=== PATIENT | female | born 1960 | race Caucasian/White ===

== ENCOUNTER 2022-08-05 18:46 | Inpatient (IN) | payer MEDICARE, OTHER ==
--- OUTSIDE RECORDS SUMMARY | 2022-08-05 18:50 | XMS REPORT | Continuity of Care Document ---
:1960 Author Organization [facility] t Address [address] [place] [address] Care Team Providers Name Role Phone Josh Valdivia Primary Care Physician Josh Valdivia Attending Clinician Cj GARLAND, Morgan L Attending Clinician ZOEY PERRIN Attending Clinician Unavailable Zoey Hill Attending Clinician Mikhail Millan MD Attending Clinician Marzena TUBBS, Cecilia Lange Attending Clinician Tootie Valdez MD Attending Clinician Doctor Unassigned, Carrizo Attending Clinician Unavailable Payers Payer Name Policy Type Policy Number Effective Date Expiration Date S ourjames MEDICARE PART A \\T\\ [id number] 2010 B 00:00:00 [facility] [id number] 2021 (MEDICARE 00:00:00 REPLACEMENT HMO) Problems Condition Condition Condition Status Onset Resolution Last Treating Co mments Source Name Details Category Date Date Treatment Clinician Date Cerebral Cerebral Problem Active 2015-102022-03-16 Memoria infarction infarction 11-16 04:17:03 l (disorder) (disorder) 00:00: Serge rmann Active 00 09/16/2016 Problem 03/16/2022 [facility] Localizati Localizat Problem Active 2015-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-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-related ion-relate 11-16 04:17:03 l symptomati d 00:00: Prieto alexandre epilepsy symptomati 00 (disorder) c epilepsy (disorder) Active 09/16/2016 Problem 03/16/2022 [facility] Sequelae Sequelae Problem Active 2015-102022-03-16 Memoria of of 11-16 04:17:03 l subarachno subarachno 00:00: He rmann id id 00 hemorrhage hemorrhage (disorder) (disorder) Active 09/16/2016 Problem 03/16/2022 [facility] No known No known Disease Unive rs active active ity of problems problems [facility] Depressive Depressiv Problem Active 2022-03-16 Memoria disorder e disorder 04:17:03 l (disorder) (disorder) Serge rmann Active Problem 03/16/2022 [facility] Fracture Fracture Problem Active 2022-03-16 Memoria of upper of upper 04:17:03 l limb limb [place] (disorder) (disorder) Active Problem 03/16/2022 [facility] Allergies, Adverse Reactions, Alerts Allergy Allergy Status Severity Reaction(s) Onset Inactive Treating Comm ents Source Name Type Date Date Clinician NO KNOWN Drug Active Univers ALLERGIE Class ity of S [facility] Social History Social Habit Start Date Stop Date Quantity Comments Source Exposure to Unable to assess Univers ity of SARS-CoV-2 [facility] (event) [place] Alcohol intake 2021-06-13 2021-06-13 Lifetime University of 00:00:00 00:00:00 non-drinker [facility] (finding) [place] Tobacco use and 2021-05-08 2021-05-08 Never used Universit y of exposure 00:00:00 00:00:00 [facility] Social History 2021-05-03 2021-05-03 [facility] dunia 13:27:13 13:27:13 Sex [birth year] Universit y of 00:00:00 00:00:00 [facility] Smoking Status Start Date Stop Date Source Current every day smoker 2021-05-08 00:00:00 Uni versity of [facility] Unknown if ever smoked [facility] Medications Ordered Filled Start Stop Current Ordering Indication Dosage Frequency Signature Comments Components Source Medication Medication Date Date Medication? 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 ity of 18:15: [address] LAMOTRIGINE 0 Yes Take by Uni vers ORAL 8-18 mouth. ity of 18:15: [address] LAMOTRIGINE Yes Take by Uni vers ORAL 8-18 mouth. ity of 13:15: [address] traMADoL 50 2020-0 Yes 4647 50mg Take 1 Univ ers mg tablet 7-13 tablet by ity o f 00:00: mouth [place] 00 every 4 Medical (four) Branch hours as needed for Pain (scale 7-10). Indication s: acute pain traMADoL 50 2020-0 Yes 4647 50mg Take 1 Univ ers mg tablet 7-13 tablet by ity o f 00:00: mouth [place] 00 every 4 Medical (four) Branch hours as needed for Pain (scale 7-10). Indication s: acute pain traMADoL 50 2020-0 Yes 4647 50mg Take 1 Univ ers mg tablet 7-13 tablet by ity o f 00:00: mouth [place] 00 every 4 Medical (four) Branch hours as needed for Pain (scale 7-10). Indication s: acute pain traMADoL 50 2020-0 Yes 4647 50mg Take 1 Univ ers mg tablet 7-13 tablet by ity o f 00:00: mouth [place] 00 every 4 Medical (four) Branch hours as needed for Pain (scale 7-10). Indication s: acute pain traMADoL 50 2020-0 Yes 4647 50mg Take 1 Univ ers mg tablet 7-13 tablet by ity o f 00:00: mouth [place] 00 every 4 Medical (four) Branch hours as needed for Pain (scale 7-10). Indication s: acute pain traMADoL 50 2020-0 Yes 4647 50mg Take 1 Univ ers mg tablet 7-13 tablet by ity o f 00:00: mouth [place] 00 every 4 Medical (four) Branch hours as needed for Pain (scale 7-10). Indication s: acute pain ondansetron 0 2020- No 4mg 4 mg, Slow Univers (ZOFRAN 05-01 IV Push, ity of (PF)) 17:15: 16:09 ONCE, 1 [place] injection 4 00 :00 dose, Tue Med ical mg 05/01/21 at Branch 1215, DARRIAN FENTanyl PF 2020- No 75ug 75 mcg, Un blair (SUBLIMAZE 05-01 Slow IV ity o f (PF)) 17:15: 16:09 Push, [place] injection 00 :00 ONCE, 1 Medical 75 mcg dose, Tue Branch 05/01/21 at 1215, STAT ondansetron 0 Yes [id number] 4mg Take 1 Univers 4 mg 7-06 tablet by ity of disintegrat 00:00: mouth [place] ing tablet 00 every 4 Medica l (four) Branch hours as needed for Nausea and Vomiting (N/V). ondansetron 2020-0 Yes [id number] 4mg Take 1 Univers 4 mg 7-06 tablet by ity of disintegrat 00:00: mouth [place] ing tablet 00 every 4 Medica l (four) Branch hours as needed for Nausea and Vomiting (N/V). ondansetron 2020-0 Yes [id number] 4mg Take 1 Univers 4 mg 7-06 tablet by ity of disintegrat 00:00: mouth [place] ing tablet 00 every 4 Medica l (four) Branch hours as needed for Nausea and Vomiting (N/V). ondansetron Yes [id number] 4mg Take 1 Univers 4 mg 7-06 tablet by ity of disintegrat 00:00: mouth [place] ing tablet 00 every 4 Medica l (four) Branch hours as needed for Nausea and Vomiting (N/V). ondansetron Yes [id number] 4mg Take 1 Univers 4 mg 7-06 tablet by ity of disintegrat 00:00: mouth [place] ing tablet 00 every 4 Medica l (four) Branch hours as needed for Nausea and Vomiting (N/V). ondansetron Yes [id number] 4mg Take 1 Univers 4 mg 7-06 tablet by ity of disintegrat 00:00: mouth [place] ing tablet 00 every 4 Medica l (four) Branch hours as needed for Nausea and Vomiting (N/V). ondansetron Yes [id number] 4mg Take 1 Univers 4 mg 7-06 tablet by ity of disintegrat 00:00: mouth [place] ing tablet 00 every 4 Medica l (four) Branch hours as needed for Nausea and Vomiting (N/V). ondansetron Yes [id number] 4mg Take 1 Univers 4 mg 7-06 tablet by ity of disintegrat 00:00: mouth [place] ing tablet 00 every 4 Medica l (four) Branch hours as needed for Nausea and Vomiting (N/V). ondansetron Yes [id number] 4mg Take 1 Univers 4 mg 7-06 tablet by ity of disintegrat 00:00: mouth [place] ing tablet 00 every 4 Medica l (four) Branch hours as needed for Nausea and Vomiting (N/V). HYDROcodone 2020- No 4647 1{tbl} Take 1 U nivers -acetaminop 7-06 07-14 tablet by it y of hen (NORCO) 00:00: 04:59 [place] 7.5-325 mg 00 :00 every 8 Medica l per tablet (eight) Branch hours as needed for Pain for up to 7 days. Indication s: acute pain HYDROcodone 2020-2020- No 4647 1{tbl} Take 1 U nivers -acetaminop 7-06 07-14 tablet by it y of hen (Thinkature) 00:00: 04:59 [place] 7.5-325 mg 00 :00 every 8 Medica l per tablet (eight) Branch hours as needed for Pain for up to 7 days. Indication s: acute pain HYDROcodone 2020-2020- No 4647 1{tbl} Take 1 U nivers -acetaminop 7-06 07-14 tablet by it y of hen (Thinkature) 00:00: 04:59 [place] 7.5-325 mg 00 :00 every 8 Medica l per tablet (eight) Branch hours as needed for Pain for up to 7 days. Indication s: acute pain HYDROcodone 2020-1- No 4647 1{tbl} Take 1 U nivers -acetaminop 7-06 07-14 tablet by it y of hen (Thinkature) 00:00: 04:59 [place] 7.5-325 mg 00 :00 every 8 Medica l per tablet (eight) Branch hours as needed for Pain for up to 7 days. Indication s: acute pain LAMOTRIGINE 2020-0 Yes Take by Uni vers ORAL 6-30 mouth. ity of 05:48: [address] LAMOTRIGINE 2020-0 Yes Take by Uni vers ORAL 6-30 mouth. ity of 05:48: [address] LAMOTRIGINE 2020-0 Yes Take by Uni vers ORAL 6-30 mouth. ity of 05:48: [address] LAMOTRIGINE 2020-0 Yes Take by Uni vers ORAL 6-30 mouth. ity of 05:48: [address] LAMOTRIGINE 2020-0 Yes Take by Uni vers ORAL 6-30 mouth. ity of 05:48: [address] LAMOTRIGINE 2020-0 Yes Take by Uni vers ORAL 6-30 mouth. ity of 05:48: [address] LAMOTRIGINE 2020-0 Yes Take by Uni vers ORAL 6-30 mouth. 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, Height, 51.364, kg, 09/29/20 13:24:00 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, Weight phenytoin 2020-1 No See Memoria 100 mg oral 1-16 Instructio l capsule, 23:28: ns, TAKE Tomasa nn extended 00 ONE release CAPSULE BY MOUTH EVERY MORNING AND 2 CAPSULES EVERY EVENING, # 270 unknown unit, 0 Refill(s), Pharmacy: [facility] [id number], 162.56, cm, 12/17/19 13:20:00 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, Height, 51.818, kg, 12/17/19 13:20:00 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, Weight phenytoin 2020-0 Yes 100 mg = 1 Me moria 100 mg oral 8-28 cap, PO, l capsule, 19:54: BID, # 60 Herm corey extended 00 cap, 1 release Refill(s), Pharmacy: [place] [address], 162.56, cm, 12/17/19 13:20:00 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, Height, 51.818, kg, 12/17/19 13:20:00 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, Weight Phenytoin 2020-0 Yes 30 mg = 1 Mem oria sodium 30 8-28 cap, PO, l MG Extended 19:54: BID, # 60 H ermann Release 00 cap, 3 Capsule Refill(s), [Dilantin] Pharmacy: [facility] [address], 162.56, cm, 12/17/19 13:20:00 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, Height, 51.818, kg, 12/17/19 13:20:00 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, Weight phenytoin 2020-0 Yes See Univers Extended 8-28 Instructio ity o f 100 mg 00:00: ns, TAKE [place] capsule 00 ONE Medical CAPSULE BY Branch MOUTH EVERY MORNING AND 2 CAPSULES EVERY EVENING, # 270 cap, 2 Refill(s), Pharmacy: [facility], 162.56, cm, 09/29/20 13:24:00 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, Height, 51.364, kg, 09/29/20 13:24:00 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, Weight phenytoin 2020-0 Yes See [place] [address] Instructio ity o f 100 mg 00:00: ns, TAKE [place] capsule 00 ONE Medical CAPSULE BY Branch MOUTH EVERY MORNING AND 2 CAPSULES EVERY EVENING, # 270 cap, 2 Refill(s), Pharmacy: [facility], 162.56, cm, 09/29/20 13:24:00 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, Height, 51.364, kg, 09/29/20 13:24:00 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, Weight phenytoin 2020-0 Yes See [place] [address] Instructio ity o f 100 mg 00:00: ns, TAKE [place] capsule 00 ONE Medical CAPSULE BY Branch MOUTH EVERY MORNING AND 2 CAPSULES EVERY EVENING, # 270 cap, 2 Refill(s), Pharmacy: [facility], 162.56, cm, 09/29/20 13:24:00 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, Height, 51.364, kg, 09/29/20 13:24:00 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, Weight phenytoin 2020-0 Yes See [place] [address] Instructio ity o f 100 mg 00:00: ns, TAKE [place] capsule 00 ONE Medical CAPSULE BY Branch MOUTH EVERY MORNING AND 2 CAPSULES EVERY EVENING, # 270 cap, 2 Refill(s), Pharmacy: [facility], 162.56, cm, 09/29/20 13:24:00 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, Height, 51.364, kg, 09/29/20 13:24:00 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, Weight phenytoin 2020-0 Yes See [place] [address] Instructio ity o f 100 mg 00:00: ns, TAKE [place] capsule 00 ONE Medical CAPSULE BY Branch MOUTH EVERY MORNING AND 2 CAPSULES EVERY EVENING, # 270 cap, 2 Refill(s), Pharmacy: [facility], 162.56, cm, 09/29/20 13:24:00 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, Height, 51.364, kg, 09/29/20 13:24:00 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, Weight phenytoin 2020-0 Yes See [place] [address] Instructio ity o f 100 mg 00:00: ns, TAKE [place] capsule 00 ONE Medical CAPSULE BY Branch MOUTH EVERY MORNING AND 2 CAPSULES EVERY EVENING, # 270 cap, 2 Refill(s), Pharmacy: [facility], 162.56, cm, 09/29/20 13:24:00 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, Weight lamotrigine 2020-0 Yes = 1 tab, Me moria 150 MG Oral 6-11 PO, BID, # l Tablet 23:50: 180 tab, 2 Tomasa nn 00 Refill(s), Pharmacy: [facility] [place], 162.56, cm, 12/17/19 13:20:00 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, Height, 51.818, kg, 12/17/19 13:20:00 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, Weight phenytoin 2020-0 No See Memoria 100 mg oral 5-07 Instructio l capsule, 18:19: ns, # 270 Herm corey extended 58 unknown release unit, Refill(s) 1, TAKE ONE CAPSULE BY MOUTH EVERY MORNING AND 2 CAPSULES EVERY EVENING, Pharmacy: [place] [address] lamotrigine 2019-0 Yes = 1 tab, Me moria 150 MG Oral 8-19 PO, BID, # l Tablet 19:24: 180 tab, [place] 56 Refill(s) 2, Pharmacy: [facility] [address] Vital Signs Vital Name Observation Time Observation Value Comments Source Systolic blood 2021-05-08 13:43:00 135 mm[Hg] Univer sity of [facility] Diastolic blood 2021-05-08 13:43:00 69 mm[Hg] Unive rsity of [facility] Heart rate 2021-05-08 13:43:00 73 /min Universi ty [facility] Body height 2021-05-08 13:43:00 162.6 cm [facility] Body weight 2021-05-08 13:43:00 58.968 kg [facility] BMI 2021-05-08 13:43:00 22.31 kg/m2 [facility] Systolic blood 2021-05-01 18:30:00 147 mm[Hg] Univer sity of pressure [facility] Diastolic blood 2021-05-01 18:30:00 65 mm[Hg] Unive rsity of pressure [facility] Heart rate 2021-05-01 18:30:00 76 /min [facility] Respiratory rate 2021-05-01 18:30:00 18 /min Univ ersity [facility] Oxygen saturation in 2021-05-01 18:30:00 97 /min University of Arterial blood by [employer] Pulse oximetry Branch Body temperature 2021-05-01 15:52:00 36.44 Carol Univ ers[facility] Body weight 2021-05-01 15:52:00 58.968 kg [facility]i [facility] BMI 2021-05-01 15:52:00 19.20 kg/m2 [facility] Systolic blood 2021-04-25 04:00:00 167 mm[Hg] Univer sity of pressure [facility] Diastolic blood 2021-04-25 04:00:00 71 mm[Hg] Unive rsity of pressure [facility] Heart rate 2021-04-25 04:00:00 80 /min Universi ty [facility] Respiratory rate 2021-04-25 04:00:00 20 /min Univ ersity [facility] Oxygen saturation in 2021-04-25 04:00:00 99 /min University of Arterial blood by [employer] Pulse oximetry Branch Body height 2021-04-25 03:36:00 175.3 cm [facility] Body weight 2021-04-25 03:36:00 58.968 kg [facility] BMI 2021-04-25 03:36:00 19.20 kg/m2 [facility] Body temperature 2021-04-25 03:34:[address] [facility] BMI Calculated 2022-03-13 20:24:00 Memori al [place] Systolic (mm Hg) 2022-03-13 20:24:00 Perez rial [place] Diastolic (mm Hg) 2022-03-13 20:24:00 Mem orial [place] Heart Rate 2022-03-13 20:24:00 [facility] [place] Respitory Rate 2022-03-13 20:24:00 Memori al [place] Height 2022-03-13 20:24:00 160.02 cm [facility] [place] Weight 2022-03-13 20:24:00 [facility] [place] Systolic (mm Hg) 2021-07-20 18:23:00 Perez rial [place] Diastolic (mm Hg) 2021-07-20 18:23:00 Mem orial [place] Heart Rate 2021-07-20 18:23:00 [facility] [place] Respitory Rate 2021-07-20 18:23:00 Memori al [place] Height 2021-07-20 18:23:00 160.02 cm [facility] [place] Weight 2021-07-20 18:23:00 [facility] [place] BMI Calculated 2021-07-20 18:23:00 Memori al [place] Systolic (mm Hg) 2021-04-26 19:31:00 Perez rial [place] Diastolic (mm Hg) 2021-04-26 19:31:00 Mem orial [place] Heart Rate 2021-04-26 19:31:00 [facility] [place] Respitory Rate 2021-04-26 19:31:00 Memori al [place] Weight 2021-04-26 19:31:00 [facility] [place] Systolic (mm Hg) 2020-09-29 19:13:00 Perez rial [place] Diastolic (mm Hg) 2020-09-29 19:13:00 Mem orial [place] Heart Rate 2020-09-29 19:13:00 [facility] [place] Respitory Rate 2020-09-29 19:13:00 Memori al Amb[place] Height 2020-09-29 19:13:00 162.56 cm [facility] [place] Weight 2020-09-29 19:13:00 [facility] [place] BMI Calculated 2020-09-29 19:13:00 Memori al [place] Systolic (mm Hg) 2019-12-17 19:20:00 Perez rial [place] Diastolic (mm Hg) 2019-12-17 19:20:00 Mem orial [place] Heart Rate 2019-12-17 19:20:00 [facility] [place] Respitory Rate 2019-12-17 19:20:00 Mem[facility] [place] Height 2019-12-17 19:20:00 162.56 cm [facility] [place] Weight 2019-12-17 19:20:00 [facility] [place] BMI Calculated 2019-12-17 19:20:00 Memori al [place] Systolic (mm Hg) 2019-10-22 15:25:00 Perez rial [place] Diastolic (mm Hg) 2019-10-22 15:25:00 Mem orial [place] Heart Rate 2019-10-22 15:25:00 [facility] [place] Respitory Rate 2019-10-22 15:25:00 Memori al [place] Height 2019-10-22 15:25:00 162.56 cm [facility] [place] Weight 2019-10-22 15:25:00 [facility] [place] BMI Calculated 2019-10-22 15:25:00 Memori al [place] Procedures Procedure Date / Time Performing Clinician Source Performed XR HUMERUS 2 VW RIGHT 2021-05-08 13:54:41 Zoey Perrin [facility] XR WRIST 3+ VW RIGHT 2021-05-08 13:18:23 Zoey Perrin [facility] US DUPLEX VENOUS ARM 2021-05-01 17:15:34 Mikhail Millan [facility] RIGHT - BY VASCULAR LAB [facility] NOTICE OF PRIVACY 2021-05-01 15:51:25 Doctor Unassigned, No [facility] PRACTICES Name [facility] [place] APPLY LONG ARM SPLINT 2021-04-25 05:32:00 [facility] [place] CLOSED RX HUM 2021-04-25 05:32:00 Tootie Valdez [facility] SUPRACONDYLR FX,MANIPU Medical B ranch EKG-12 LEAD 2021-04-25 05:28:12 Tootie Valdez [facility] CT HEAD WO CONTRAST 2021-04-25 04:57:36 Tootie Valdez [facility] XR FOREARM 2 VW RIGHT 2021-04-25 04:32:25 Tootie Valdez [facility] XR HUMERUS 2 VW RIGHT 2021-04-25 04:32:25 Tootie Valdez [facility] XR SHOULDER 2+ VW RIGHT 2021-04-25 04:32:25 [facility] URINE DRUG (IMMUNOASSAY) 2021-04-25 04:05:00 [facility] SCREEN URINALYSIS 2021-04-25 04:05:00 Tootie Valdez [facility] TROPONIN I 2021-04-25 03:48:00 Tootie Valdez [facility] COMP. METABOLIC PANEL 2021-04-25 03:48:00 Tootie Valdez [facility] ([id number]) [facility] CBC WITH DIFF 2021-04-25 03:48:00 Tootie Valdez [facility] AUTHORIZATION FOR 2019-12-20 06:01:00 Doctor Unassigned, No [facility] RELEASE OF PHI Name [facility] Branch Encounters Start End Encounter Admission Attending Care Care Encounter Source Date/Time Date/Time Type Type Clinicians Facility Department ID 2021-08-27 Emergency [facility] [id number] Univers 06:14:51 [facility] 2021-08-27 Emergency [facility] [id number] Univers 04:49:18 [facility] 2023-02-19 2023-02-19 Outpatient MHIE EMMY [id number] Memoria 10:15:00 10:15:00 16 l [place] 2022-05-10 2022-05-10 Outpatient DMG COBY [id number] Devoted 06:08:00 06:08:00 0715 Medica l Group 2022-03-13 2022-03-14 Outpatient nullFlavo MNA [id number] Memoria 20:15:00 04:59:59 r Neurology 15 l Hasmukh Ambrose 2022-03-13 2022-03-13 Outpatient SOFY Valdivia [id number] 15:15:00 23:59:59 Josh Alicia Bradford 2022-03-13 2022-03-13 Outpatient MHIE MHIE [id number] Memoria 15:15:00 15:15:00 15 luis daniel Boggs 2021-10-23 2021-10-23 Ambulatory nullFlavo MNA [id number] Memoria 19:15:00 19:15:00 Pre-Reg r Neurology 14 l [place] Ambrose 2021-10-23 2021-10-23 Outpatient MHIE MHIE [id number] Memoria 13:15:00 13:15:00 14 luis daniel Ambrose 2021-10-23 2021-10-23 Outpatient SOFY Valdivia [id number] 13:15:00 13:15:00 Josh 14 Sanchez 2021-09-06 2021-09-06 [id number] [facility]oted 08:00:00 08:00:00 1111 Medica l Group 2021-07-30 2021-07-30 Telephone [facility] [id number] Univers 00:00:00 00:00:00 [facility] [id number] it y of Surgical [id number] Dusty as Specialti [id number] Ca dical 198 [facility] 2021-07-27 2021-07-27 Outpatient Aleida PERRIN [facility] [id number] Univers 11:15:00 11:15:00 ZOEY [id number] [facility] 2021-07-27 2021-07-27 Outpatient Aleida PERRIN [facility] [id number] Univers 11:15:00 11:15:00 [facility] 2021-07-20 2021-07-21 Outpatient nullFlavo MNA [id number] Memoria 18:15:00 04:59:59 r Neurology 13 l Hasmukh Boggs 2021-07-20 2021-07-20 Outpatient Krell, MHMISCHER MHMISCHER [id number] 13:15:00 23:59:59 Josh 13 Sanchez 2021-07-20 2021-07-20 Outpatient MHIE MHIE [id number] Memoria 13:15:00 13:15:00 13 l Ambrose 2021-07-16 2021-07-16 Outpatient Aleida AYDIN [facility] [id number] Univers 13:30:00 13:30:00 ZOEY [id number] [facility] 2021-07-16 2021-07-16 Outpatient Aleida AYDIN [facility] [id number] Univers 13:30:00 13:30:00 [facility]Y [facility] 2021-07-04 2021-07-06 Outside nullFlavo MNA [id number] Memoria 13:42:49 04:59:59 Medical r Neurology 03 l Records Hasmukh Ambrose 2021-07-04 2021-07-05 Outpatient MHMISCHER MHMISCHER [id number] 08:42:49 23:59:59 03 2021-06-14 2021-06-16 Outside nullFlavo MNA [id number] Memoria 14:59:41 04:59:59 Medical r Neurology 02 l Records Hasmukh Boggs 2021-06-14 2021-06-15 Outpatient MHMISCHER MHMISCHER [id number] 09:59:41 23:59:59 02 2021-06-14 2021-06-14 Telephone [facility] [id number] Univers 00:00:00 00:00:00 [facility]ey [facility] [id number] it y of [place]erm[place] [id number] Dusty as Pankaj?Blea [id number] Ca son huerta 198 [facility] 2021-06-14 2021-06-14 Telephone [facility] [id number] Univers 00:00:00 00:00:00 [facility] [id number] it y of [place] [id number] Dusty as Pankaj?Blea [id number] Ca son huerta 198 [facility] 2021-06-13 2021-06-13 Outpatient Aleida PERRIN [facility] [id number] Univers 13:45:00 13:45:00 ZOEY [id number] [facility] 2021-06-13 2021-06-13 Outpatient Aleida AYDIN [facility] [id number] Univers 13:45:00 13:45:00 [facility]Y [facility] 2021-06-12 2021-06-12 Outpatient Aleida AYDIN [facility] [id number] Univers 13:00:00 13:00:[id number] [place] [address] 2021-06-12 2021-06-12 Outpatient Aleida AYDIN [facility] [id number] Univers 13:00:00 13:00:00 [facility] 2021-06-11 2021-06-11 [facility] [id number] Univers 13:45:00 13:45:00 [facility] [id number] [facility] 2021-06-11 2021-06-11 [facility] [id number] Univers 13:45:00 [facility]:45:[facility]-05 2021-06-07 Outside nullFlavo MNA [id number] Memoria 14:36:05 04:59:59 Medical r Neurology 01 l Records Hasmukh Boggs 2021-06-05 2021-06-06 Outpatient MHMISCHER MHMISCHER [id number] 09:36:05 23:59:59 2021-05-24 2021-05-24 Ambulatory nullFlavo MNA [id number] Memoria 18:15:00 18:15:00 Pre-Reg r Neurology 12 l Hasmukh Boggs 2021-05-24 2021-05-24 Outpatient MHIE MHIE [id number] Memoria 13:15:00 13:15:00 12 l Ambrose 2021-05-24 2021-05-24 Outpatient SOFY Valdivia MHMISCHER [id number] 13:15:00 13:15:00 Josh Bradford 2021-05-08 2021-05-08 [facility] 1.2.840.114 [id number] Univers 08:45:00 23:59:00 Encounter [facility] 350.1.13.10 ity of Surgical 4.2.7.2.686 Dusty as Specialti [id number] Ca dical es 809 [facility] 2021-05-08 2021-05-08 Office [facility] 1.2.840.114 [id number] Univers 09:00:51 09:15:51 Visit [facility] 350.1.13.10 it y of Surgical 4.2.7.2.686 Dusty as Specialti [id number] Ca dical es 198 [facility] 2021-05-08 2021-05-08 [facility] [id number] Univers 08:45:00 08:45:00 [facility] [id number] [facility] 2021-05-08 2021-05-08 Outpatient R [facility] [id number] Univers 08:45:00 08:45:00 [facility] 2021-05-08 2021-05-08 [facility] 1.2.840.114 [id number] Univers 08:18:22 08:44:00 Encounter Zoey [facility] 350.1.13.10 ity of Surgical 4.2.7.2.686 Dusty as Specialti [id number] Ca dical es 809 [facility] 2021-05-08 2021-05-08 Telephone [facility] [id number] [id number] Univers 00:00[facility]00 [facility]13.10 [facility] Surgical 4.2.7.2.686 Dusty as Specialti [id number] Ca dical es 198 [facility] 2021-05-01 2021-05-01 Emergency [facility] [id number] Univers 10:52:00 13:39:00 Mikhail Jermyn 350.1.13.10 i [place].2.[place] [id number] [facility] 084 Branch 2021-04-26 2021-04-27 Outpatient nullFlavo MNA [id number] Memoria 18:45:00 04:59:59 r Neurology 11 luis daniel Boggs 2021-04-26 2021-04-26 Outpatient LINDEN ValdiviaSCHER MHMISCHER [id number] 13:45:00 23:59:59 Josh 11 Sanchez 2021-04-26 2021-04-26 Outpatient MHIE MHIE [id number] Memoria 13:45:00 13:45:00 11 luis daniel Boggs 2021-04-24 2021-04-25 Emergency Cecilia Ivan [facility] 1.2.[id number] [facility] 22:31:00 00:54:00 CourtneyTootie Demetrius Jermyn 350.1.13.10 [facility] 4.2.7.2.686 [facility] [id number] [facility] 084 [place] 2021-03-30 2021-03-30 Ambulatory nullFlavo MNA [id number] Memoria 18:15:00 18:15:00 Pre-Reg r Neurology 10 l Glen[place]dar[place] Sebastianann 2021-03-30 2021-03-30 Outpatient MHIE MHIE [id number] Memoria 13:15:00 13:15:00 10 luis daniel Boggs 2021-03-30 2021-03-30 Outpatient LINDEN ValdiviaSCHER MHMISCHER [id number] 13:15:00 13:15:00 Josh 10 Sanchez 2020-09-29 2020-09-30 Outpatient nullFlavo MNA [id number] Memoria 19:15:00 05:59:59 r Neurology 09 luis daniel [place] Ambrose 2020-09-29 2020-09-29 Outpatient LINDEN ValdiviaSCHER MHMISCHER [id number] 13:15:00 23:59:59 Josh 09 Sanchez 2020-09-29 2020-09-29 Outpatient MHIE MHIE [id number] Memoria 13:15:00 13:15:00 09 luis daniel Ambrose 2020-07-21 2020-07-21 Ambulatory nullFlavo MNA [id number] Memoria 14:30:00 14:30:00 Pre-Reg r Neurology 04 l [place] Ambrose 2020-07-21 2020-07-21 Ambulatory nullFlavo MNA [id number] Memoria 14:30:00 14:30:00 Pre-Reg r Neurology 07 l Hasmukh Bay[place] 2020-07-21 2020-07-21 Outpatient MHIE MHIE [id number] Memoria 09:30:00 09:30:00 04 luis daniel Bay[place] 2020-07-21 2020-07-21 Outpatient MHIE MHIE [id number] Memoria 09:30:00 09:30:00 07 luis daniel Boggs 2020-07-21 2020-07-21 Outpatient Skip, MHMISCHER MHMISCHER [id number] 09:30:00 09:30:00 Josh 04 Sanchez 2020-07-21 2020-07-21 Outpatient Skip, MHMISCHER MHMISCHER [id number] 09:30:00 09:30:00 Josh 07 [facility] 2020-06-23 2020-06-24 Outpatient nullFlavo MNA [id number] Memoria 19:30:00 04:59:59 r Neurology 08 l Hasmukh [place] 2020-06-23 2020-06-23 Outpatient Skip, MHMISCHER MHMISCHER [id number] 14:30:00 23:59:59 Josh 08 [facility] 2020-06-23 2020-06-23 Outpatient MHIE MHIE [id number] Memoria 14:30:00 14:30:00 08 [facility] 2019-12-20 2019-12-20 Orders Doctor RADHA 1.2.840.114 [id number] Univers 00:00:00 00:00:00 Only Unassigned, LYNDON 350.1.13.10 ity of [place] [facility] 4.2.7.2.686 Dusty as [id number] [address] 2019-12-17 2019-12-18 Outpatient nullFlavo MNA [id number] Memoria 19:30:00 05:59:59 r Neurology 06 l Hasmukh Ambrose 2019-12-17 2019-12-17 Outpatient Skip, MHMISCHER MHMISCHER [id number] 13:30:00 23:59:59 Josh 06 [facility] 2019-12-17 2019-12-17 Outpatient MHIE MHIE [id number] Memoria 13:30:00 13:30:00 06 luis daniel Ambrose 2019-12-08 2019-12-08 Ambulatory nullFlavo MNA [id number] Memoria 22:00:00 22:00:00 Pre-Reg r Neurology 05 l Hasmukh Ambrose 2019-12-08 2019-12-08 Outpatient MHIE MHIE [id number] Memoria 16:00:00 16:00:00 05 luis daniel SebastianBayamon 2019-12-08 2019-12-08 Outpatient Skip MHMISCHER MHMISCHER [id number] 16:00:00 16:00:00 Josh 05 Sanchez 2019-10-22 2019-10-23 Outpatient nullFlavo MNA [id number] Memoria 15:30:00 05:59:59 r Neurology 03 luis daniel Noe Ambrose 2019-10-22 2019-10-22 Outpatient Skip MHMISCHER MHMISCHER [id number] 09:30:00 23:59:59 Josh 03 Sanchez 2019-10-22 2019-10-22 Outpatient MHIE MHIE [id number] Memoria 09:30:00 09:30:00 03 luis daniel Ambrose 2019-06-29 2019-06-29 Ambulatory nullFlavo MNA [id number] Memoria 18:30:00 18:30:00 Pre-Reg r Neurology 02 l [place] Ambrose 2019-06-29 2019-06-29 Outpatient MHIE MHIE [id number] Memoria 13:30:00 13:30:00 02 luis daniel Ambrose 2019-06-29 2019-06-29 Outpatient GERRY ValdiviaMISCHER MHMISCHER [id number] 13:30:00 13:30:00 Josh Willow Bradford 2018-12-29 2018-12-29 Outpatient MHIE MHIE [id number] Memoria 13:30:00 13:30:00 01 luis daniel Boggs 2018-10-31 2018-11-02 Outside nullFlavo MNA [id number] Memoria 17:57:00 05:59:59 Medical r Neurology 00 l Saeed [place] Ambrose 2018-10-31 2018-11-01 Outpatient MHMISCHER MHMISCHER [id number] 11:57:00 23:59:59 00 2018-06-30 2018-06-30 Outpatient MHIE MHIE [id number] Memoria 13:00:00 13:00:00 00 luis daniel Boggs Results Test Test Test Results Result Source Description Time Comments Comments XR WRIST 3+ VW 2021-04- Right wrist there was an University of RIGHT 13 [place] [facility] 14:27:01 well-healed but no acute Branch fracture x-ray was taken in Sugar tong splint. There are degenerative changes in the wrist joint there is no volar or dorsal angulation of the well-healed fracture XR HUMERUS 2 VW 2021-04- Midshaft transverse University of RIGHT 13 fracture in acceptable [facility] 14:26:24 alignment not much Branch callus formation Ortho Fracture 2021-03- Tootie Valdez MD ? ? University 30 04/25/2021 12:32 [facility]Ortho [facility] 05:32:00 FracturePerformed by: Rekha vaTootie Guardado MDAuthorized by: Tootie Valdez MD Consent: ?Consent obtained: ?Emergent situation ?Consent given by: ?Healthcare agent ?Risks discussed: ?Nerve damage, pain and vascular damage ?Alternatives discussed: ?No treatmentInjury: ?Injury location: ?Upper arm ?Upper arm injury location: ?R upper arm ?Upper arm fracture type: supracondylar humeral ?Pre-procedure assessment: ?Neurological function: normal ? ?Distal perfusion: normal ? ?Range of motion: reduced ?Anesthesia (see MAR for exact dosages): ?Anesthesia method: ?NoneProcedure details: ?Manipulation performed: yes ? ?Skin traction used: no ? ?Skeletal traction used: no ? ?Pin inserted: no ? ?Reduction successful: no ? ?Immobilization: ?Splint ?Splint type: ?Double sugar tong ?Supplies used: ?Chzcz-BfcmzTbgz-qlpaxcj re details: ?Neurological function: normal ? ?Distal perfusion: normal ? ?Range of motion: improved ? ?Patient tolerance of procedure: ?Tolerated well, no immediate complications CT HEAD WO 2021-03- Large area of [facility] CONTRAST 30 encephalomalacia in the [facility] 05:09:09 left parietal Branch andoccipital lobe.2. Smaller area of subacute encephalomalacia in the left frontal lobe.3. Previous bifrontal craniotomy.4. No acute intracranial hemorrhage or edema. RL: 5611 AFC: [id number] END OF REPORT Ordering Physician: TOOTIE VALDEZ Clinical Indication: Mental status change, unknown cause Additional Clinical Information: Technical Quality: Good Comparison: None Technique: CT scan of the head is obtained without contrast. CT Scan wasperformed using ALARA principles. ? 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 There is also an area of low attenuation the left frontallobe atelectasis probably subacute to old. There is no acute hemorrhage oredema. There is mild expected dilatation of left lateral ventricle. The bone windows shows previous bifrontal craniotomy. Paranasal sinuses areclear. [facility], Radiant Results Inft User - 04/25/2021 12:10 AM CDT Ordering Physician: TOOTIE WISEMAClinical Indication: Mental status change, unknown cause Additional Clinical Information:Technical Quality: GoodComparison: NoneTechnique: CT scan of the head is obtained without contrast. CT Scan wasperformed using ALARA principles. 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 There is also an area of low attenuation the left frontallobe atelectasis probably subacute to old. There is no acute hemorrhage oredema. There is mild expected dilatation of left lateral ventricle.The bone windows shows previous bifrontal craniotomy. Paranasal sinuses areclear.IMPRESSIONLarge area of encephalomalacia in the left parietal andoccipital lobe.2. Smaller area of subacute encephalomalacia in the left frontal lobe.3. Previous bifrontal craniotomy.4. No acute intracranial hemorrhage or edema.RL: 5611AFC: [id number] OF REPORT ALYSIS 2021-04-25 05:01:35 Test Item Value Reference Range Interpretation Comme nts APPEARANCE (test code = Clear Clear 0902101501) COLOR (test code = 0651800013) Yellow Yellow PH (test code = 6732414628) 4.8-8.0 SP GRAVITY (test code = 1.003-1.030 0532386337) GLU U QUAL (test code = Normal Normal 9777038327) BLOOD (test code = 2633841023) 1+ Negative A KETONES (test code = 7870069532) Negative Negative PROTEIN (test code = 2887-8) Negative Negative UROBILIN (test code = Normal Normal 7924581320) BILIRUBIN (test code = Negative Negative 6190075010) NITRITE (test code = 1746961444) Negative Negative LEUK ABELARDO (test code = Negative Negative 8138614951) RBC/HPF (test code = 6613979641) See_Comment [Automated message] The system which ge nerated this result transmit dewey reference range: 0 - 3 HP F. The reference range was not used to interpret th is result as normal/abnormal . WBC/HPF (test code = 8441739377) See_Comment [Automated message] The system which ge nerated this result transmit dewey reference range: 0 - 5 HP F. The reference range was not used to interpret th is result as normal/abnormal . BACTERIA (test code = Few Negative A 5061073734) MUCOUS (test code = 5360544085) Slight Negative LPF A SQ EPITH (test code = <1 HPF 6821739974) TRANS EPI (test code = <1 See_Comment [Aut omated message] The 9931897764) system which ge nerated this result transmit dewey reference range: <=1 HPF. The reference range was not u sed to interpret this result as normal/abnormal . Lab Interpretation (test code = Abnormal 07727-6) [facility] [id number] 04:56:34 Test Item Value Reference Range Interpretation Comments AMPHET (test code = Negative Negative 4212118821) GARCIA U (test code = Negative Negative 7145469716) BENZO U (test code = Presumptive Positive Negative A 1046684606) Cocaine Metabolite (test Negative Negative code = 8147384054) METHADONE (test code = Negative Negative 9457503557) OPIATES (test code = Negative Negative 7268411131) PCP (test code = Negative Negative 0660516155) THC (test code = Negative Negative 0543280618) TENNILLE (test code = TENNILLE) Urine Drug Cutoff Ranges Cocaine: ? 150 ng/mLBenzodiazepines: ? ? 200 ng/mLMethadone: ? 300 ng/mLAmphetamine: ? 1,000 ng/mLOpiates: ? 300 ng/mLCannabinoids: ?50 ng/mLPhencyclidine: ? ? ? 25 ng/mLBarbiturates: ?200 ng/mL The results are to be used only for medical (i.e., treatment) purposes. Unconfirmed screening results must not be used for non-medical purposes (e.g., employment testing, legal testing). Lab Interpretation (test Abnormal code = 69865-3) [facility] FOREARM 2 VW [id number] 04:48:54 Sclerotic distal radius is probably sequela of an old fracture.No acute fracture or subluxation. RL:5611 AFC: 67429 END OF REPORT Ordering Physician: TOOTIE VALDEZ Clinical Indication: Right Forearm pain S/P Fall Additional Clinical Information: Technical Quality: Good Comparison: None Technique: 2 view right forearm Findings: There is osteopenia. There is sclerosis of distal radius isprobably an old fracture. There is no acute fracture. [facility], Radiant Results Inft User - 04/24/2021 11:50 PM CDTFormatting of this note might be different fromthe original.Ordering Physician: TOOTIE SANDOVALlinical Indication: Right Forearm pain S/P Fall Additional Clinical Information:Technical Quality: GoodComparison: NoneTechnique: 2 view right forearmFindings: There is osteopenia. There is sclerosis of distal radius isprobably an old fracture. There isno acute fracture.IMPRESSIONSclerotic distal radius is probably sequela of an old fracture.No acute fracture or subluxation.RL: 5611AFC: [id number] OF REPORT [facility] CenterXR SHOULDER 2+ VW [id number] 04:44:291. Oblique fracture of the mid humeral diaphysis with mild valgusangulation.2. No acute fracture or dislocation of the right shoulder. RL: 5611 AFC: 28916 END OF REPORT Ordering Physician: TOOTIE VALDEZ Clinical Indication: Shoulder pain S/P Fall Additional Clinical Information: Technical Quality: Good Comparison: None Technique: 4 view right s houlder and two-view right humerus Findings: There is osteopenia. There is an oblique fracture of the midhumeral shaft. There is rotator cuff atrophy but no fracture or dislocationin the glenohumeral joint. There are multiple small subchondral cyst. In the humerus, the fracture of the mid diaphysis demonstrates a milddegree of or valgus angulation. [facility], Radiant Results Inft User - 04/24/2021 11:45 PM CDT Ordering Physician: TOOTIE SANDOVALlinical Indication: Shoulder pain S/P Fall Additional Clinical Information:Technical Quality: GoodComparison: NoneTechnique: 4 view right shoulder and two-view right humerusFindings: There is osteopenia. There is an oblique fracture of the midhumeral shaft. There is rotator cuff atrophy but no fracture or dislocationin the glenohumeral joint. There are multiple small subchondral cyst.In the humerus, the fracture of the mid diaphysis demonstrates a milddegree of or valgus angulation.IMPRESSION1. Oblique fracture of the mid humeral diaphysis with mild valgusangulation.2. No acute fracture or dislocation of the right shoulder.RL: 5611AFC: [id number] OF REPORT [facility] CenterXR HUMERUS 2 VW [id number] 04:44:291. Oblique fracture of the mid humeral diaphysis with mild valgusangulation.2. No acute fracture or dislocation of the right shoulder. RL: 5611 AFC: 73631 END OF REPORT Ordering Physician: TOOTIE VALDEZ Clinical Indication: Shoulder pain S/P Fall Additional Clinical Information: Technical Quality: Good Comparison: None Technique: 4 view right s houlder and two-view right humerus Findings: There is osteopenia. There is an oblique fracture of the midhumeral shaft. There is rotator cuff atrophy but no fracture or dislocationin the glenohumeral joint. There are multiple small subchondral cyst. In the humerus, the fracture of the mid diaphysis demonstrates a milddegree of or valgus angulation. [facility], Radiant Results Inft User - 04/24/2021 11:45 PM CDT Ordering Physician: TOOTIE WATERSRIMAClinical Indication: Shoulder pain S/P Fall Additional Clinical Information:Technical Quality: GoodComparison: NoneTechnique: 4 view right shoulder and two-view right humerusFindings: There is osteopenia. There is an oblique fracture of the midhumeral shaft. There is rotator cuff atrophy but no fracture or dislocationin the glenohumeral joint. There are multiple small subchondral cyst.In the humerus, the fracture of the mid diaphysis demonstrates a milddegree of or valgus angulation.IMPRESSION1. Oblique fracture of the mid humeral diaphysis with mild valgusangulation.2. No acute fracture or dislocation of the right shoulder.RL: 5611AFC: 44595MKK OF REPORT [facility] HospitalKATY [id number] 04:18:37 Test Item Value Reference Interpretation Comments Range TROPONIN I (test 0.003 ng/mL See_Comment [Automated code = 2413567249) message] The system which generated this result transmitted reference range : <=0.034. The reference range was not used to interpret this result as normal/abnormal . TENNILLE (test code = Reference (Normal) TENNILLE) Range (defined by the 99th percentile reference limit): <= 0.034 ng/mL Note: Cardiac troponin begins to rise 3-4 hours after the onset of ischemia. Repeat in 4-6 hours if the sample was drawn within 3-4 hours of the onset of the symptom and found normal. Diagnosis of myocardial injury is made with acute changes in cTn concentrations with at least one serial sample above the 99th percentile upper reference limit (URL), taken together with the patient's clinical presentation. Biotin has been reported to cause a negative bias, interpret results relative to patient's use of biotin. Lab Interpretation Normal (test code = 05605-0) [facility]. METABOLIC PANEL (60060)2021-04-25 04:06:39 Test Item Value Reference Range Interpretation Comments NA (test code = 134 mmol/L 135-145 L 0359666164) K (test code = 3.9 mmol/L 3.5-5.0 8200668348) CL (test code = 101 mmol/L 98-108 6872704519) CO2 TOTAL (test code = 28 mmol/L 23-31 5872258918) AGAP (test code = 2-16 3764057758) BUN (test code = 13 mg/dL 7-23 8990927737) GLUCOSE (test code = 132 mg/dL 70-110 H 2997935741) CREATININE (test code = 0.66 mg/dL 0.50-1.04 1044662354) TOTAL BILI (test code = 0.6 mg/dL 0.1-1.2 4153279236) CALCIUM (test code = 9.0 mg/dL 8.6-10.6 2037554642) T PROTEIN (test code = 7.2 g/dL 6.3-8.2 0570574192) ALBUMIN (test code = 4.1 g/dL 3.5-5.0 5429450269) ALK PHOS (test code = 83 U/L 34-122 0593346517) ALTv (test code = 14 U/L 5-35 2-6) AST(SGOT) (test code = 26 U/L 13-40 4989766426) eGFR (test code = mL/min/1.73m2 3671195907) TENNILLE (test code = TENNILLE) Association of Glomerular Filtration Rate (GFR) and Staging of Kidney Disease* + --+ --+ ------+| GFR (mL/min/1.73 m2) ?| With Kidney Damage ?| ?Without Kidney Damage+ --------+ --------+ +| ?>90 ?| ?Stage one ?| ? Normal ?+ ---+ ---+ -------+| ?60-89 ?| ?Stage two ?| ? Decreased GFR ? + --+ --+ ------+| ?30-59 ?| ?Stage three ?| ? Stage three ? + --+ --+ ------+| ?15-29 ?| ?Stage four ? | ? Stage four ?+ ---+ ---+ -------+| ?<15 (or dialysis) ? ?| ?Stage five ? | ? Stage five ?+ ---+ ---+ -------+ *Each stage assumes the associated GFR level has been in effect for at least three months. ?Stages 1 to 5, with or without kidney disease, indicate chronic kidney disease. Notes: Determination of stages one and two (with eGFR >59mL/min/1.73 m2) requires estimation of kidney damage for at least three months as defined by structural or functional abnormalities of the kidney, manifested by either:Pathological abnormalities or Markers of kidney damage (including abnormalities in the composition of the blood or urine or abnormalities in imaging tests). Lab Interpretation Abnormal (test code = 06651-5) [facility] WITH [id number] 03:58:16 Test Item Value Reference Range Interpretation Comments WBC (test code = See_Comment [Automated 7590-2) message] The sy stem which generated this result transmitted reference range : 4.30 - 11.10 10*3/?L. The reference range was not used to interpret this result as normal/abnormal . RBC (test code = See_Comment [Automated 789-8) message] The sy stem which generated this result transmitted reference range : 3.93 - 5.25 10*6/?L. The reference range was not used to interpret this result as normal/abnormal . HGB (test code = 13.2 g/dL 11.6-15.0 718-7) HCT (test code = 39.7 % 35.7-45.2 4544-3) MCV (test code = 94.3 fL 80.6-95.5 787-2) MCH (test code = 31.4 pg 25.9-32.8 785-6) MCHC (test code = 33.2 g/dL 31.6-35.1 786-4) RDW-SD (test code = 48.3 fL 39.0-49.9 53685-5) RDW-CV (test code = 14.0 % 12.0-15.5 788-0) PLT (test code = See_Comment [Automated 777-3) message] The sy stem which generated this result transmitted reference range : 166 - 358 10*3/ ?L. The reference r mike was not used to interpret this result as normal/abnormal . MPV (test code = 8.8 fL 9.5-12.9 L 19342-7) NRBC/100 WBC (test See_Comment [Automat ed code = 6555795518) message] The system which generated this result transmitted reference range : 0.0 - 10.0 /100 WBCs. The refer ence range was not u sed to interpret th is result as normal/abnormal . NRBC x10^3 (test code <0.01 See_Comment [Auto mated = 8370773771) message] The s ystem which generated this result transmitted reference range : 10*3/?L. The reference range was not used to interpret this result as normal/abnormal . GRAN MAT (NEUT) % 61.2 % (test code = 770-8) IMM GRAN % (test code 0.40 % = 9814960902) LYMPH % (test code = 26.2 % 736-9) MONO % (test code = 10.2 % 5905-5) EOS % (test code = 1.0 % 713-8) BASO % (test code = 1.0 % 706-2) GRAN MAT x10^3(ANC) 4.07 10*3/uL 1.88-7.09 (test code = 1962660333) IMM GRAN x10^3 (test 0.03 10*3/uL 0.00-0.06 code = 3739047525) LYMPH x10^3 (test code 1.75 10*3/uL 1.32-3.29 = 731-0) MONO x10^3 (test code 0.68 10*3/uL 0.33-0.92 = 742-7) EOS x10^3 (test code = 0.07 10*3/uL 0.03-0.39 711-2) BASO x10^3 (test code 0.07 10*3/uL 0.01-0.07 = 704-7) Lab Interpretation Abnormal (test code = 68641-9) [facility] [id number] 08:47:00 Test Item Value Reference Range Interpretation Comments Glucose Lvl (test code = Glucose Lvl) 65 65-99 [facility]2020-12-03 08:47:00 Test Item Value Reference Range Interpretation Comments BUN (test code = BUN) 8 7-25 [facility]2020-12-03 08:47:00 Test Item Value Reference Range Interpretation Comments Creatinine Lvl (test code = Creatinine 0.63 0.50-0.99 Lvl) [facility]2020-12-03 08:47:00 Test Item Value Reference Range Interpretation Comments eGFR NON-AFR. IRAQI (test code = 97 eGFR NON-AFR. IRAQI) [place] [id number] 08:47:00 Test Item Value Reference Range Interpretation Comments eGFR (test code = eGFR 112 ) [facility] [id number] 08:47:00 Test Item Value Reference Range Interpretation Comments B/C Ratio (test code = B/C NOT APPLICABLE 22 Ratio) [facility] [id number] 08:47:00 Test Item Value Reference Range Interpretation Comments Sodium Lvl (test code = Sodium Lvl) 138 135-146 [facility] [id number] 08:47:00 Test Item Value Reference Range Interpretation Comments Potassium Lvl (test code = Potassium 4.2 3.5-5.3 Lvl) [facility] [id number] 08:47:00 Test Item Value Reference Range Interpretation Comments Chloride Lvl (test code = Chloride Lvl) 102 98-110 [facility] [id number] 08:47:00 Test Item Value Reference Range Interpretation Comments CO2 (test code = CO2) 25 20-32 [facility] [id number] 08:47:00 Test Item Value Reference Range Interpretation Comments Calcium Lvl (test code = Calcium Lvl) 9.3 8.6-10.4 [facility] [id number] 08:47:00 Test Item Value Reference Range Interpretation Comments Total Protein (test code = Total 7.8 6.1-8.1 Protein) [facility] [id number] 08:47:00 Test Item Value Reference Range Interpretation Comments Albumin Lvl (test code = Albumin Lvl) 4.6 3.6-5.1 [facility] [id number] 08:47:00 Test Item Value Reference Range Interpretation Comments Globulin (test code = Globulin) 3.2 1.9-3.7 [facility] [id number] 08:47:00 Test Item Value Reference Range Interpretation Comments A/G Ratio (test code = A/G Ratio) 1.4 1.0-2.5 [facility] [id number] 08:47:00 Test Item Value Reference Range Interpretation Comments Bili Total (test code = Bili Total) 0.4 0.2-1.2 [place] [id number] 08:47:00 Test Item Value Reference Range Interpretation Comments Alk Phos (test code = Alk Phos) 118 37-153 [place] [id number] 08:47:00 Test Item Value Reference Range Interpretation Comments ASPARTATE TRANSAMINASE (test code = 20 10-35 ASPARTATE TRANSAMINASE) [place] [id number] 08:47:00 Test Item Value Reference Range Interpretation Comments ALANINE AMINOTRANSFERASE (test code = 9 6-29 ALANINE AMINOTRANSFERASE) [place] [id number] 08:47:00 Test Item Value Reference Range Interpretation Comments WBC X 10x3 (test code = WBC X 10x3) 7.9 3.8-10.8 [place] [address]-12-03 08:47:00 Test Item Value Reference Range Interpretation Comments RBC X 10x6 (test code = RBC X 10x6) 4.84 3.80-5.10 [place] [address]-12-03 08:47:00 Test Item Value Reference Range Interpretation Comments Hgb (test code = Hgb) 15.1 11.7-15.5 [place] [address]-12-03 08:47:00 Test Item Value Reference Range Interpretation Comments Hct (test code = Hct) 44.7 35.0-45.0 [place] [address]-12-03 08:47:00 Test Item Value Reference Range Interpretation Comments MCV (test code = MCV) 92.4 80.0-100.0 [place] [address]-12-03 08:47:00 Test Item Value Reference Range Interpretation Comments MCH (test code = MCH) 31.2 pg 27.0-33.0 [place] [address]-12-03 08:47:00 Test Item Value Reference Range Interpretation Comments MCHC (test code = MCHC) 33.8 32.0-36.0 [place] [address]-12-03 08:47:00 Test Item Value Reference Range Interpretation Comments RDW (test code = RDW) 13.0 11.0-15.0 [place] [address]-12-03 08:47:00 Test Item Value Reference Range Interpretation Comments Platelet (test code = Platelet) 285 140-400 [id number] 08:47:00 Test Item Value Reference Range Interpretation Comments MPV (test code = MPV) 9.8 7.5-12.5 [id number] 08:47:00 Test Item Value Reference Range Interpretation Comments Neutrophils # (test code = Neutrophils 3231 2035-4393 #) [facility] [id number] 08:47:00 Test Item Value Reference Range Interpretation Comments Lymphocytes # (test code = Lymphocytes 3697 850-3900 #) [id number] 08:47:00 Test Item Value Reference Range Interpretation Comments Monocytes # (test code = Monocytes #) 672 200-950 [place] [id number] 08:47:00 Test Item Value Reference Range Interpretation Comments Eosinophils # (test code = Eosinophils 190 15-500 #) [facility] HospitalUtdvacdUAJHATYMTX1627-11-33 08:47:00 Test Item Value Reference Range Interpretation Comments Basophils # (test code 111 See_Comment [Aut omated message] The = Basophils #) system which generated this result tra nsmitted reference range : <=200. The reference r mike was not used to int erpret this result as normal/abnormal . [facility] H[id number] 08:47:00 Test Item Value Reference Range Interpretation Comments Segs (test code = Segs) 40.9 [facility] H[id number] 08:47:00 Test Item Value Reference Range Interpretation Comments Lymphocytes (test code = Lymphocytes) 46.8 [facility] H[id number] 08:47:00 Test Item Value Reference Range Interpretation Comments Monocytes (test code = Monocytes) 8.5 [place] [id number] 08:47:00 Test Item Value Reference Range Interpretation Comments Eosinophils (test code = Eosinophils) 2.4 [facility] [id number] 08:47:00 Test Item Value Reference Range Interpretation Comments Basophils (test code = Basophils) 1.4 [facility] [id number] 08:47:00 Test Item Value Reference Range Interpretation Comments Phenytoin Total (test code = Phenytoin 19.0 10.0-20.0 Total) [facility] CenterQmmgxqiUCCXDEJJDL9260-09-05 08:47:00 Test Item Value Reference Range Interpretation Comments Lamotrigine Lvl (test code = 3.3 4.0-18.0 Lamotrigine Lvl) Sofie Boggs"
[2022-08-05] MEDS ORDERED: CEFTRIAXONE 1000 MG/VIAL ONE (19:35)
[2022-08-05] MEDS ORDERED: FENTANYL CITR 100 MCG/2 ML ONE (19:35)
[2022-08-05] MEDS ORDERED: FAMOTIDINE 20 MG/2 ML VIAL IV ONE (19:36)
[2022-08-05] MEDS ORDERED: ONDANSETRON 4 MG/2 ML VIAL ONE (19:36)
[2022-08-05] MEDS ORDERED: NA CHLORIDE 0.9% 1,000 ML ONE (19:36)
[2022-08-05] MEDS ORDERED: NA CHLORIDE 0.9% 100 ML IV ONE (19:37)
--- NOTE | 2022-08-05 19:50 | EDPHYS ---
Physician Documentation [facility] Name: Aisha Schmitt Age: 61 yrs Sex: Female : 1960 Arrival Date: 08/05/2022 Time: 18:56 Bed 13 Private MD: ED Physician Javier Lei HPI: 08/05 19:09 This 61 yrs old Female presents to ER via EMS with complaints of Fall Injury. thierry Historical: - Allergies: 19:12 No Known Allergies; jl7 - Home Meds: 19:12 Phenytoin Oral [Active]; lamotrigine oral [Active]; jl7 - PMHx: 19:12 Cerebrovascular accident; Seizure; jl7 - Immunization history: Last tetanus immunization: unknown. - Social history:: Smoking status: Patient reports the use of cigarette tobacco products, smokes three packs cigarettes per day. ROS: 19:10 Constitutional: Negative for fever, chills, and weight loss, Eyes: Negative for injury, thierry pain, redness, and discharge, ENT: Negative for injury, pain, and discharge, Neck: Negative for injury, pain, and swelling, Cardiovascular: Negative for chest pain, palpitations, and edema, Respiratory: Negative for shortness of breath, cough, wheezing, and pleuritic chest pain, Abdomen/GI: Negative for abdominal pain, nausea, vomiting, diarrhea, and constipation, Back: Negative for injury and pain, : Negative for injury, bleeding, discharge, and swelling, Skin: Negative for injury, rash, and discoloration, Neuro: Negative for headache, weakness, numbness, tingling, and seizure, Psych: Negative for depression, anxiety, suicide ideation, homicidal ideation, and hallucinations, Allergy/Immunology: Negative for hives, rash, and allergies, Endocrine: Negative for neck swelling, polydipsia, polyuria, polyphagia, and marked weight changes, Hematologic/Lymphatic: Negative for swollen nodes, abnormal bleeding, and unusual bruising. 19:10 MS/extremity: Positive for decreased range of motion, pain, swelling, tenderness, of the right hip. Exam: 19:10 Constitutional: This is a well developed, well nourished patient who is awake, alert, thierry and in no acute distress. Head/Face: Normocephalic, atraumatic. Eyes: Pupils equal round and reactive to light, extra-ocular motions intact. Lids and lashes normal. Conjunctiva and sclera are non-icteric and not injected. Cornea within normal limits. Periorbital areas with no swelling, redness, or edema. ENT: Nares patent. No nasal discharge, no septal abnormalities noted. Tympanic membranes are normal and external auditory canals are clear. Oropharynx with no redness, swelling, or masses, exudates, or evidence of obstruction, uvula midline. Mucous membranes moist. Neck: Trachea midline, no thyromegaly or masses palpated, and no cervical lymphadenopathy. Supple, full range of motion without nuchal rigidity, or vertebral point tenderness. No Meningismus. Chest/axilla: Normal chest wall appearance and motion. Nontender with no deformity. No lesions are appreciated. Cardiovascular: Regular rate and rhythm with a normal S1 and S2. No gallops, murmurs, or rubs. Normal PMI, no JVD. No pulse deficits. Respiratory: Lungs have equal breath sounds bilaterally, clear to auscultation and percussion. No rales, rhonchi or wheezes noted. No increased work of breathing, no retractions or nasal flaring. Abdomen/GI: Soft, non-tender, with normal bowel sounds. No distension or tympany. No guarding or rebound. No evidence of tenderness throughout. Back: No spinal tenderness. No costovertebral tenderness. Full range of motion. Female : Normal external genitalia. Skin: Warm, dry with normal turgor. Normal color with no rashes, no lesions, and no evidence of cellulitis. Neuro: Awake and alert, GCS 15, oriented to person, place, time, and situation. Cranial nerves II-XII grossly intact. Motor strength 5/5 in all extremities. Sensory grossly intact. Cerebellar exam normal. Normal gait. Psych: Awake, alert, with orientation to person, place and time. Behavior, mood, and affect are within normal limits. 19:10 Musculoskeletal/extremity: ROM: limited active range of motion due to pain, limited passive range of motion due to pain, Circulation is intact in all extremities. Sensation intact. Compartment Syndrome exam of affected extremity: is normal. DVT Exam: negative Homans' sign noted on exam, no appreciated bluish discoloration, no erythema, no increased warmth, pain, swelling, tenderness. Vital Signs: 19:03 BP 156 / 75; Pulse 79; Resp 15 S; Temp 98.2; Pulse Ox 88% on R/A; Weight 54.43 kg; jl7 Height 5 ft. 4 in. (162.56 cm); 19:50 BP 150 / 84; Pulse 77; Resp 20 S; Pulse Ox 98% on 2 lpm NC; ha1 22:17 BP 154 / 70; Pulse 84; Resp 20; Pulse Ox 98% on 2 lpm NC; ha1 19:03 Body Mass Index 20.60 (54.43 kg, 162.56 cm) jl7 Wooster Coma Score: 19:03 Eye Response: spontaneous(4). Verbal Response: oriented(5). Motor Response: obeys jl7 commands(6). Total: 15. Trauma Score (Adult): 19:03 Eye Response: spontaneous(1); Verbal Response: oriented(1); Motor Response: obeys jl7 commands(2); Systolic BP: > 89 mm Hg(4); Respiratory Rate: 10 to 29 per min(4); Wooster Score: 15; Trauma Score: 12 MDM: 18:57 Patient medically screened. [facility] 19:12 Differential diagnosis: abrasion, closed head injury, contusion, fracture, multiple thierry trauma, sprain, strain. Data reviewed: vital signs, nurses notes, EMS record, lab test result(s), EKG, radiologic studies, CT scan, plain films. Data interpreted: cardiac monitor technician: rate is 79 beats/min, rhythm is regular, Pulse oximetry: on room air is 88 %. Counseling: I had a detailed discussion with the patient and/or guardian regarding: the historical points, exam findings, and any diagnostic results supporting the discharge/admit diagnosis, lab results, radiology results, the need for further work-up and treatment in the hospital. 08/05 19:08 Order name: Basic Metabolic Panel [facility] 08/05 19:08 Order name: CBC with Diff 08/05 19:08 Order name: LFT's thierry 08/05 19:08 Order name: Magnesium [facility] 08/05 19:08 Order name: NT PRO-BNP [facility] 08/05 19:08 Order name: PT-INR [facility] 08/05 19:08 Order name: Troponin HS [facility] 08/05 19:08 Order name: Urine Microscopic Only [facility] 08/05 19:09 Order name: CK [facility] 08/05 19:09 Order name: Ckmb [facility] 08/05 19:09 Order name: Type And Screen [facility] 08/05 19:56 Order name: SARS-COV-2 Antigen Rapid 2 08/05 20:41 Order name: SARS-COV-2 Antigen Rapid; Complete Time: 20:57 [facility] 08/05 19:08 Order name: XRAY Chest (1 view) [facility] 08/05 21:26 Order name: Dilantin [facility] 08/05 21:32 Order name: Protime (+INR); Complete Time: 21:45 [facility] 08/05 21:42 Order name: Urine Microscopic Only; Complete Time: 21:45 [facility] 08/05 21:50 Order name: Basic Metabolic Panel; Complete Time: 21:51 [facility] 08/05 21:50 Order name: Liver (Hepatic) Function; Complete Time: 21:51 [facility] 08/05 21:50 Order name: Creatine Phosphokinase; Complete Time: 21:51 [facility] 08/05 21:50 Order name: CKMB Creatine Kinase MB; Complete Time: 21:51 [facility] 08/05 21:50 Order name: Troponin High Sensitivity; Complete Time: 21:[facility] 08/05 21:50 Order name: NT PRO-BNP; Complete Time: 21:51 [facility] 08/05 21:50 Order name: Magnesium; Complete Time: 21:51 [facility] 08/05 21:56 Order name: UDS [facility] 08/05 21:56 Order name: ETOH Level [facility] 08/05 22:34 Order name: Urine Drug Screen [facility] 08/05 22:43 Order name: Phenytoin (Dilantin) Level [facility] 08/05 22:44 Order name: Alcohol Serum/Plasma [facility] 08/05 19:08 Order name: EKG; Complete Time: 19:09 [facility] 08/05 19:08 Order name: Cardiac monitoring; Complete Time: 23:10 [facility] 08/05 19:08 Order name: EKG - Nurse/Tech; Complete Time: 23:14 [facility] 08/05 19:08 Order name: IV Saline Lock; Complete Time: 23:10 [facility] 08/05 19:08 Order name: Labs collected and sent; Complete Time: 23:10 [facility] 08/05 19:08 Order name: O2 Per Protocol; Complete Time: 23:10 [facility] 08/05 19:08 Order name: O2 Sat Monitoring; Complete Time: 23:10 [facility] 08/05 19:08 Order name: Pelvis XRAY [facility] 08/05 19:08 Order name: Hip Right 2 View XRAY [facility] 08/05 19:08 Order name: Femur Right XRAY [facility] 08/05 19:08 Order name: CT Traumagram (Head C Spine CAP wo con) [facility] 08/05 19:08 Order name: Urine Dipstick-Ancillary (obtain specimen); Complete Time: 23:11 [facility] 08/05 19:12 Order name: Ankle Right 3 View XRAY [facility] 08/05 20:03 Order name: CT; Complete Time: 20:03 [facility] 08/05 20:04 Order name: RAD; Complete Time: 20:05 [facility] 08/05 20:04 Order name: RAD; Complete Time: 20:05 [facility] 08/05 20:05 Order name: RAD; Complete Time: 20:17 [facility] 08/05 20:06 Order name: RAD; Complete Time: 20:17 [facility] 08/05 21:42 Order name: RAD; Complete Time: 21:45 [facility] 08/05 21:46 Order name: Labs - recollect needed: type and screen, cbc; Complete Time: 23:14 mw2 Administered Medications: 20:03 Drug: Zofran (Ondansetron) 4 mg Route: IVP; Site: left forearm; ha1 22:03 Follow up: Response: No adverse reaction ha1 22:05 Follow up: Response: No adverse reaction ha1 20:03 Drug: Rocephin (cefTRIAXone) 1 grams Route: IV; Rate: per protocol; Site: left forearm; ha1 20:04 Drug: fentaNYL (PF) 50 mcg {Note: RR 20 O2 98.} Route: IVP; Site: left forearm; ha1 20:30 Follow up: Response: No adverse reaction; Pain is unchanged, physician notified; RASS: 1 Alert and Calm (0) 22:01 Drug: morphine 4 mg Route: IVP; Infused Over: 4 mins; Site: left hand; ha1 22:02 Drug: NS 0.9% 1000 ml Route: IV; Rate: 1 bolus; Site: left hand; ha1 22:04 Follow up: Response: No adverse reaction; IV Status: Completed infusion; IV Intake: ha1 1000ml 22:02 Drug: Pepcid (famotidine) 20 mg Route: IVP; Site: left hand; ha1 22:02 Drug: SOLU-Medrol (methylPrednisoLONE) 100 mg Route: IVP; Site: left hand; ha1 22:02 Drug: Xopenex (levalbuterol) 2.5 mg Route: Inhalation; ha1 22:02 Drug: AtroVENT (ipratropium) Aerosol 0.5 mg Route: Inhalation; ha1 23:10 Drug: Magnesium Sulfate 1 grams Route: IVPB; Infused Over: 1 hrs; Site: left hand; as6 Disposition Summary: 08/05/22 19:50 Hospitalization Ordered Hospitalization Status: Inpatient Admission thierry Location: Telemetry/MedSurg (Inpatient) thierry Condition: Fair thierry Problem: new thierry Symptoms: have improved thierry Bed/Room Type: Standard thierry Provider: Alfredo Bray(08/05/22 21:49) la1 Room Assignment: 419(08/05/22 22:38) bb Diagnosis - Fall on same level, unspecified thierry - Rhabdomyolysis thierry - Displaced intertrochanteric fracture of right femur thierry - COPD/ Chronic obstructive pulmonary disease with (acute) exacerbation thierry - Hypoxemia thierry - Weakness - hx of right hemiparesis thierry Forms: - Medication Reconciliation Form thierry - SBAR form thierry Signatures: Dispatcher [employer] EDMS Mirela Beck RN RN mw Anderson, Corey, MD MD cha Ballard, Brenda, RN RN Eric Ragsdale, TALEND DEVELOPER-C TALEND DEVELOPER-Cla1 Raymon Pereira RN RN jl7 Tina Kapoor mw2 Apollo Alcala RN RN as6 Malinda Howard RN RN 1 Corrections: (The following items were deleted from the chart) 19:14 19:12 PMHx: Hypertensive disorder; jl7 jl7 19:14 19:12 PMHx: Hypertensive disorder; jl7 jl7 20:44 19:50 thierry 21:49 19:50 Paulo Marshall cha la1 22:38 20:44 412 mw bb
--- NOTE | 2022-08-05 19:50 | ER ---
Nurse's Notes [facility] Name: Aisha Schmitt Age: 61 yrs Sex: Female : 1960 Arrival Date: 08/05/2022 Time: 18:56 Bed 13 Private MD: Diagnosis: Fall on same level, unspecified;Rhabdomyolysis;Displaced intertrochanteric fracture of right femur;COPD/ Chronic obstructive pulmonary disease with (acute) exacerbation;Hypoxemia;Weakness-hx of right hemiparesis Presentation: 08/05 19:03 Chief complaint: EMS states: Toned out by son, pt found down, reportedly fell this 7 morning around 0800, hx of CVA with right-sided deficits, pt's complaining of right hip pain. EMS reports pt is normally combative but has been cooperative, 50 mcg fentanyl IVP x 1 given in route. Care prior to arrival: Medication(s) given: Fentanyl 50 mcg IVP IV initiated. 20 GA, in the left hand, Glucose check: 134. Mechanism of Injury: Fall from standing position. Trauma event details: Injury occurred in the [facility], Injury occurred: at home. Injury occurred: August 05, 2022 Injury occurred at: 08:00. 19:03 Acuity: BRIANNE 2 jl7 19:03 Method Of Arrival: EMS: [facility] 19:11 Coronavirus screen: Vaccine status: Patient reports being unvaccinated. Ebola Screen: jl No symptoms or risks identified at this time. Initial Sepsis Screen: Does the patient meet any 2 criteria? No. Patient's initial sepsis screen is negative. Does the patient have a suspected source of infection? No. Patient's initial sepsis screen is negative. Risk Assessment: Do you want to hurt yourself or someone else? Patient reports no desire to harm self or others. Onset of symptoms was August 05, 2022 at 08:00. Historical: - Allergies: 19:12 No Known Allergies; jl7 - Home Meds: 19:12 Phenytoin Oral [Active]; lamotrigine oral [Active]; jl7 - PMHx: 19:12 Cerebrovascular accident; Seizure; jl7 - Immunization history: Last tetanus immunization: unknown. - Social history:: Smoking status: Patient reports the use of cigarette tobacco products, smokes three packs cigarettes per day. Screenin:03 Abuse screen: Denies threats or abuse. Denies injuries from another. Tuberculosis jl7 screening: No symptoms or risk factors identified. Primary Survey: 19:03 NO uncontrolled hemorrhage observed. A: The client is alert. Airway: patent. jl7 Breathing/Chest: Spontaneous respiratory effort, equal unlabored respirations, breath sounds clear bilaterally, regular pattern, symmetrical chest rise and fall. Circulation: No external hemorrhage present. Regular and strong central pulse, skin warm/dry/normal color. Disability Client is alert. Exposure/Environment: All clothing and personal items were removed. Forensic evidence collection is not deemed to be indicated at this time. Items placed in patient belonging bag. There is no evidence of uncontrolled external bleeding. No obvious injuries are noted at this time. A warming method has been applied: A warm blanket has been provided to the patient. Assessment: 19:03 General: Appears in no apparent distress. uncomfortable, Behavior is cooperative, jl7 restless. Pain: Complains of pain in right hip. 19:50 General: Appears uncomfortable, Behavior is calm, cooperative. Pain: Complains of pain ha1 in generalized Pain currently is 9 out of 10 on a pain scale. Neuro: Level of Consciousness is awake, alert, obeys commands, Oriented to person, place, time, situation. Cardiovascular: Patient's skin is warm and dry. Respiratory: Airway is patent Trachea midline Respiratory effort is even, unlabored, Respiratory pattern is regular, symmetrical. Musculoskeletal: Parent/caregiver report the patient having pt. son's report that his mother fell this morning but do not know why it happened. 20:36 Reassessment: Patient and/or family updated on plan of care and expected duration. Pain ha1 level reassessed. Patient is alert, oriented x 3, equal unlabored respirations, skin warm/dry/pink. 21:30 Reassessment: Patient and/or family updated on plan of care and expected duration. Pain ha1 level reassessed. Patient is alert, oriented x 3, equal unlabored respirations, skin warm/dry/pink. 22:58 Reassessment: report given to Alice MYERS for room 419. bb Vital Signs: 19:03 BP 156 / 75; Pulse 79; Resp 15 S; Temp 98.2; Pulse Ox 88% on R/A; Weight 54.43 kg; jl7 Height 5 ft. 4 in. (162.56 cm); 19:50 BP 150 / 84; Pulse 77; Resp 20 S; Pulse Ox 98% on 2 lpm NC; ha1 22:17 BP 154 / 70; Pulse 84; Resp 20; Pulse Ox 98% on 2 lpm NC; ha1 19:03 Body Mass Index 20.60 (54.43 kg, 162.56 cm) jl7 Tadeo Coma Score: 19:03 Eye Response: spontaneous(4). Verbal Response: oriented(5). Motor Response: obeys jl7 commands(6). Total: 15. Trauma Score (Adult): 19:03 Eye Response: spontaneous(1); Verbal Response: oriented(1); Motor Response: obeys jl7 commands(2); Systolic BP: > 89 mm Hg(4); Respiratory Rate: 10 to 29 per min(4); [place] Score: 15; Trauma Score: 12 ED Course: 18:56 Patient arrived in ED. em1 18:56 Javier Lei MD is Attending Physician. thierry 19:03 Patient has correct armband on for positive identification. Placed in gown. Bed in low jl7 position. Call light in reach. Side rails up X2. 19:05 Oxygen administration via nasal cannula \T\ 2L/min Response to oxygen therapy: symptoms jl7 improved. 19:05 Thermoregulation: warm blanket given to patient. jl7 19:06 Triage completed. jl7 19:12 Arm band placed on right wrist. jl7 19:29 Malinda Howard RN is Primary Nurse. ha1 19:47 Paulo Marshall is Hospitalizing Provider. thierry 20:36 SARS-COV-2 Antigen Rapid Sent. ha1 20:46 [place] cath inserted, using sterile technique, 16 Fr., by nv, balloon inflated, to as6 gravity drainage, Patient tolerated well. 21:49 Alfredo Bray MD is Hospitalizing Provider. la1 22:13 ETOH Level Sent. ha1 Administered Medications: 20:03 Drug: Zofran (Ondansetron) 4 mg Route: IVP; Site: left forearm; ha1 22:03 Follow up: Response: No adverse reaction ha1 22:05 Follow up: Response: No adverse reaction ha1 20:03 Drug: Rocephin (cefTRIAXone) 1 grams Route: IV; Rate: per protocol; Site: left forearm; ha1 20:04 Drug: fentaNYL (PF) 50 mcg {Note: RR 20 O2 98.} Route: IVP; Site: left forearm; ha1 20:30 Follow up: Response: No adverse reaction; Pain is unchanged, physician notified; RASS: ha1 Alert and Calm (0) 22:01 Drug: morphine 4 mg Route: IVP; Infused Over: 4 mins; Site: left hand; ha1 22:02 Drug: NS 0.9% 1000 ml Route: IV; Rate: 1 bolus; Site: left hand; ha1 22:04 Follow up: Response: No adverse reaction; IV Status: Completed infusion; IV Intake: ha1 1000ml 22:02 Drug: Pepcid (famotidine) 20 mg Route: IVP; Site: left hand; ha1 22:02 Drug: SOLU-Medrol (methylPrednisoLONE) 100 mg Route: IVP; Site: left hand; ha1 22:02 Drug: Xopenex (levalbuterol) 2.5 mg Route: Inhalation; ha1 22:02 Drug: AtroVENT (ipratropium) Aerosol 0.5 mg Route: Inhalation; ha1 23:10 Drug: Magnesium Sulfate 1 grams Route: IVPB; Infused Over: 1 hrs; Site: left hand; as6 Intake: 22:04 IV: 1000ml; Total: 1000ml. ha1 Outcome: 19:50 Decision to Hospitalize by Provider. [facility] 23:21 Patient left the ED. bb Signatures: Javier Lei MD MD cha Ballard, Brenda RN Rodrigo Adair em1 Eric Lyons, CRM FUNCTIONAL ANALYST-C CRM FUNCTIONAL ANALYST-[facility] Raymon Pereira RN RN jl7 Slawson, Ashby, RN RN as6 Malinda Howard, LOUIS RN ha1 Corrections: (The following items were deleted from the chart) 19:14 19:12 PMHx: Hypertensive disorder; jlOlivia jl7 19:14 19:12 PMHx: Hypertensive disorder; giancarlo mondragon
--- NOTE | 2022-08-05 20:01 | RAD REPORT ---
EXAM DESCRIPTION: CT - Head C Spine Cap Wo Con - 08/05/2022 7:45 pm CLINICAL HISTORY: Head and neck injury with chest and abdominal pain status post fall TECHNIQUE: Computed axial tomography of head, neck, chest, abdomen and pelvis obtained. IV and oral contrast not requested. Coronal and sagittal reconstruction performed. All CT scans are performed using dose optimization technique as appropriate and may include automated exposure control or mA/KV adjustment according to patient size. COMPARISON: None FINDINGS: Aneurysm clips have been placed into the brain. Large area cystic encephalomalacia left cerebrum. No acute intracranial bleed. The ventricles are normal in caliber. An extra-axial fluid collection is not noted. . Fluid within the sinuses/mastoids is not seen. A cervical fracture is not seen. No dislocation is noted. The evaluation of mediastinum, portia, vessels, solid organs and bowel are limited secondary to the lac k of contrast administration. A mediastinal hematoma is not noted. A pleural effusion is not seen. A lung contusion is not present. The liver,spleen, pancreas, adrenals,kidneys and bladder do not demonstrate a traumatic injury Moderate amount stool within the colon Intertrochanteric fracture right femur involves greater and lesser trochanters. Fracture is comminute d. There is angulation and impaction present at the fracture site. Fracture is moderately displaced. IMPRESSION: No acute intracranial abnormality is seen. A cervical fracture is not visualized. No traumatic injury involving the chest/abdomen Right femoral fracture
--- NOTE | 2022-08-05 20:03 | RAD REPORT ---
EXAM DESCRIPTION: RAD - Pelvis - 08/05/2022 7:57 pm CLINICAL HISTORY: Pelvic pain status post injury FINDINGS: Comminuted intertrochanteric fracture right femur which involves the lesser and greater tr ochanters. Impaction and varus angulation present at the fracture site. Moderate displacement of frac ture fragments. No dislocation
--- NOTE | 2022-08-05 20:03 | RAD REPORT ---
EXAM DESCRIPTION: RAD - Hip Right 2 View - 08/05/2022 7:57 pm CLINICAL HISTORY: Right hip pain FINDINGS: Comminuted intertrochanteric fracture right femur which involves the lesser and greater tr ochanters. Impaction and varus angulation present at the fracture site. Moderate displacement of frac ture fragments. No dislocation
--- NOTE | 2022-08-05 20:04 | RAD REPORT ---
EXAM DESCRIPTION: RAD - Femur Right - 08/05/2022 7:57 pm CLINICAL HISTORY: Leg pain FINDINGS: Comminuted intertrochanteric fracture right femur which involves the lesser and greater tr ochanters. Impaction and varus angulation present at the fracture site. Moderate displacement of frac ture fragments. No dislocation
--- NOTE | 2022-08-05 20:05 | RAD REPORT ---
EXAM DESCRIPTION: RAD - Ankle Right 3 View - 08/05/2022 7:57 pm CLINICAL HISTORY: Right ankle pain status post fall FINDINGS: Bones are osteoporotic. Small bony/calcific density medial to the talus. I suspect this is chronic as there is not significan t soft tissue swelling. This should be correlated clinically. Otherwise, no fracture or dislocation
[2022-08-05 20:41] LABS: SARS-CoV-2 Antigen Rapid Res Negative (Negative)
[2022-08-05 21:32] LABS: Protime INR 1.1
[2022-08-05 21:42] LABS: Urine Mucus Slight /HPF (None Seen)
--- NOTE | 2022-08-05 21:42 | RAD REPORT ---
EXAM DESCRIPTION: Miracle Single View08/05/2022 7:57 pm CLINICAL HISTORY: Chest pain COMPARISON: none FINDINGS: The lungs appear clear of acute infiltrate. The heart is normal size IMPRESSION: No acute abnormalities displayed
[2022-08-05] MEDS ORDERED: MORPHINE 4 MG/ML SYR ONE (21:48)
[2022-08-05 21:49] LABS: ALT/SGPT 20 U/L (12-78); AST/SGOT 21 U/L (15-37); Albumin 3.5 g/dL (3.4-5.0); Alkaline Phosphatase 98 U/L (45-117); BUN Blood Urea Nitrogen 11 mg/dL (7-18); Bicarbonate 24 mmol/L (21-32); Bilirubin Direct < 0.1 mg/dL (0-0.2); Bilirubin Total 0.4 mg/dL (0.2-1.0); CKMB Creatine Kinase MB 3.5 ng/mL (1.0-3.6); Creatine Phosphokinase 112 U/L (26-192); Glomerular Filtration Rate 81 ml/min (=/>90); Glucose Level 139 mg/dL (74-106); Magnesium 1.7 mg/dL (1.8-2.4); NT PRO-BNP 227 pg/mL (<125); Potassium 4.1 mmol/L (3.5-5.1); Protein, Total 7.1 g/dL (6.4-8.2); Sodium Level 139 mmol/L (136-145); Troponin High Sensitivity 9.1 pg/mL (<58.9)
[2022-08-05] MEDS ORDERED: IPRATROPIUM BROM 0.5MG/2.5ML ONE (21:49)
[2022-08-05] MEDS ORDERED: LEVALBUTEROL 1.25 MG/3 ML NEB ONE (21:49)
[2022-08-05] MEDS ORDERED: METHYLPREDNISOLONE 125 MG INJ ONE (21:50)
[2022-08-05] MEDS ORDERED: ALBUTEROL 2.5 MG/3 ML NEB SOL NEB PRN (22:07)
[2022-08-05 22:33] LABS: Barbiturates NEGATIVE (NEGATIVE); Benzodiazepines NEGATIVE (NEGATIVE); Cocaine NEGATIVE (NEGATIVE); METHAMPHETAM NEGATIVE (NEGATIVE); Methadone NEGATIVE (NEGATIVE); Opiates NEGATIVE (NEGATIVE); Phencyclidine NEGATIVE (NEGATIVE); THC Cannibis NEGATIVE (NEGATIVE)
[2022-08-05] MEDS ORDERED: MAGNESIUM SULFATE 1 gm IVPB 1 GM/100 ML BAG IV ONE (23:06)
[2022-08-05 23:40] LABS: Absolute Lymphocytes (CBC) 0.7 K/uL (0.7-4.9); Hematocrit 38.3 % (36.0-45.0); Lymphocytes % 8.1 % (15.3-44.8); MCV 94.1 fL (80-100); MPV 7.2 fL (7.6-11.3); RBC Red Blood Cell Count 4.07 M/uL (3.86-4.86)
--- NOTE | 2022-08-05 23:48 | P.HP ---
Certification for Inpatient Patient admitted to: Inpatient With expected LOS: >2 Midnights Patient will require the following post-hospital care: None Practitioner: I am a practitioner with admitting privileges, knowledge of patient current condition, hospital course, and medical plan of care. Services: Services provided to patient in accordance with Admission requirements found in Title 42 Section 412.3 of the Code of Federal Regulations <Eric Lyons - Last Filed: 08/05/22 23:42> Patient History Date of Service: 08/05/22 Reason for admission: Right hip fracture History of Present Illness: 61-year-old female with history of CVA in 2011 resulting in right-sided weakness, mental disability presents to the emergency department after being found on the ground. Patient lives with her 20-year-old son who helps care for her and is her medical power of track dresser he left for work around 5 in the morning and came back around 5 PM and found her lying on the floor. She had defecated on herself and was surrounded by cigarettes which he had been smoking throughout the day, patient is very poor historian, oriented x1 but stated she had been there since 8 AM. Patient reported right hip pain. Her son is at bedside reports her baseline mental status is oriented x1, agitated. She had CT scan of her head/C-spine/chest abdomen pelvis without contrast which demonstrated aneurysm clips present in the brain. Large area of cystic encephalomalacia in the left cerebrum, intertrochanteric fracture right femur involves the greater and lesser trochanters. Fracture is comminuted there is angulation and impaction present at the fracture site. Fracture is moderately displaced. Chest x-ray with no acute abnormalities displayed. Patient was found to be hypoxic on room air with saturations in the high 80s her son reports that she smokes up to 3 packs a day and has been for many years she is noncompliant does not see any doctors outpatient aside from her neurologist Dr. Valdivia. ED provider wishes to admit for further evaluation and management of right hip fracture. 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-sided weakness -: Encephalomalacia/mental disability from previous stroke -: Seizures -: Aneurysmal clipping 2012 Psychosocial/ Personal History: Patient lives at home with her son who is her primary caregiver - Family History Family History: Reviewed- Non-Contributory - Social History Smoking Status: Current every day smoker Counseled patient to stop smoking for: less than 10 minutes Smoking therapy provided: Yes Alcohol use: No CD- Drugs: No Caffeine use: Yes Place of Residence: Home <Eric Lyons - Last Filed: 08/05/22 23:42> Date of Service: 08/06/22 <Alfredo Bray - Last Filed: 08/06/22 19:16> Allergies No Known Allergies Allergy (Verified 08/05/22 22:05) Review of Systems is unable to be obtained <Eric Lyons - Last Filed: 08/05/22 23:42> Physical Examination - Vital Signs Temperature: 98.2 F Blood Pressure: 154/70 Pulse: 84 Respirations: 20 - Physical Exam General: Alert, In no apparent distress, Oriented x1, Cooperative, Confused HEENT: Atraumatic, PERRLA, Mucous membr. moist/pink, EOMI, Sclerae nonicteric Neck: Supple, 2+ carotid pulse no bruit, No LAD, Without JVD or thyroid abnormality Respiratory: Diminished Cardiovascular: No edema, Regular rate/rhythm, Normal S1 S2 Capillary refill: <2 Seconds Gastrointestinal: Normal bowel sounds, No tenderness Musculoskeletal: No tenderness Integumentary: No rashes Neurological: Normal speech, Normal affect - Studies Laboratory Data (last 24 hrs) 08/05/22 21:00: PT 12.1, INR 1.10 08/05/22 21:00: Sodium 139, Potassium 4.1, BUN 11, Creatinine 0.82, Glucose 139 H, Magnesium 1.7 L, Total Bilirubin 0.4, AST 21, ALT 20, Alkaline Phosphatase 98 <Eric Lyons - Last Filed: 08/05/22 23:42> - Studies Laboratory Data (last 24 hrs) 08/05/22 21:00: PT 12.1, INR 1.10 08/05/22 21:00: Sodium 139, Potassium 4.1, BUN 11, Creatinine 0.82, Glucose 139 H, Magnesium 1.7 L, Total Bilirubin 0.4, AST 21, ALT 20, Alkaline Phosphatase 98 <Alfredo Bray - Last Filed: 08/06/22 19:16> Assessment and Plan - Plan Assessment: Plan: Assessment: Right intertrochanteric comminuted/displaced femur fracture Acute on chronic hypoxic respiratory failure likely secondary to suspected underlying COPD Seizure disorder Right-sided weakness/mental disability secondary to encephalomalacia/previous hemorrhagic CVA 2011 Tobacco abuse Plan: Right intertrochanteric comminuted/displaced femur fracture: N.p.o. for midnight, cardiology consult in place for clearance. Orthopedics consulted. As needed pain medications, Washington catheter in place. Patient ambulatory at home per her son but unsteady does not use any assistive devices as she refuses to. Acute on chronic hypoxic respiratory failure likely secondary to suspected underlying COPD: Son reports that she has never been told she has COPD but she smokes approximately 3 packs/day she was found to be mildly hypoxic in room air with saturations around 87 to 88%. She was placed on nasal cannula. Nebulizer treatment in place no wheezing noted at this time. Daily right saturations. Patient would likely need home oxygen although son doubts that she would comply with this therapy. Seizure disorder: Dilantin level ordered, continue medications once verified. Right-sided weakness/mental disability secondary to encephalomalacia/previous hemorrhagic CVA 2012: At baseline per son she is oriented x1 becomes agitated easily and typically will not comply with medical therapies. Tobacco abuse: Son reports he smokes about 3 packs/day, will provide with NicoDerm patch. Counseled on need for cessation. DVT PPX:SCD Code status:DNR Discharge Plan: Home Plan to discharge in: Greater than 2 days - Advance Directives Does patient have a Living Will: Yes Does patient have a Durable POA for Healthcare: Yes - Code Status/Comfort Care Code Status Assessed: Yes (DNR) Critical Care: No Time Spent Managing Pts Care (In Minutes): 70 <Eric Lyons - Last Filed: 08/05/22 23:42> Physician Review: Patient Assessed, Agree with Above Assessment and Plan <Alfredo Bray - Last Filed: 08/06/22 19:16>
[2022-08-05] MEDS: NICOTINE 21 MG/PAT TD SCH (23:49)
[2022-08-06] MEDS: D5.45NS W/KCL 20MEQ 1,000 ML IV SCH ×2 (00:13→09:14)
[2022-08-06] MEDS: MORPHINE 2 MG/ML SYR IV PRN ×5 (00:36→20:45)
[2022-08-06] MEDS: ONDANSETRON 4 MG/2 ML VIAL IV PRN ×2 (00:39→09:14)
[2022-08-06] MEDS ORDERED: HYDROMORPHONE HCL 0.5 MG/0.5 ML INJ IV ONE (01:40)
[2022-08-06 02:28] VITALS: BMI 19.7
[2022-08-06 03:35] LABS: Absolute Lymphocytes (CBC) 0.8 K/uL (0.7-4.9); Hematocrit 37.3 % (36.0-45.0); Lymphocytes % 10.9 % (15.3-44.8); MCV 94.8 fL (80-100); MPV 7.5 fL (7.6-11.3); RBC Red Blood Cell Count 3.93 M/uL (3.86-4.86)
[2022-08-06] MEDS ORDERED: IPRATROPIUM BROM 0.5MG/2.5ML NEB PRN (04:00)
[2022-08-06 04:03] LABS: Albumin 3.2 g/dL (3.4-5.0); Bilirubin Total 0.4 mg/dL (0.2-1.0); Magnesium 2.1 mg/dL (1.8-2.4); Potassium 4.1 mmol/L (3.5-5.1); Protein, Total 6.7 g/dL (6.4-8.2); Thyroid Stimulating Hormone 0.278 uIU/mL (0.360-3.740); Troponin High Sensitivity 10.2 pg/mL (<58.9)
[2022-08-06] MEDS: NICOTINE 21 MG/PAT TD SCH (09:14)
[2022-08-06] MEDS ORDERED: FENTANYL CITR 100 MCG/2 ML ONE (10:08)
[2022-08-06] MEDS ORDERED: EPINEPHRINE/PF 1 MG/ML AMP ONE (10:08)
[2022-08-06] MEDS ORDERED: ONDANSETRON 4 MG/2 ML VIAL ONE (10:08)
[2022-08-06] MEDS ORDERED: LIDOCAINE 2% MPF 5 ML VIAL ONE (10:08)
[2022-08-06] MEDS ORDERED: MIDAZOLAM HCL 2 MG/2 ML INJ ONE (10:08)
[2022-08-06] MEDS ORDERED: KETOROLAC 30 MG/ML INJ ONE (10:08)
[2022-08-06] MEDS ORDERED: LIDOCAINE 1% MPF 5 ML VIAL ONE (10:08)
[2022-08-06] MEDS ORDERED: dexAMETHasone 10 MG/ML VIAL ONE (10:08)
[2022-08-06] MEDS ORDERED: propofoL 200 MG/20 ML VIAL IV ONE ×2 (10:08)
[2022-08-06] MEDS ORDERED: Ringers Lactate 1,000 ML IV ONE (10:42)
[2022-08-06] MEDS ORDERED: CEFAZOLIN SODIUM 1 GM/VIAL ONE (11:45)
[2022-08-06] MEDS ORDERED: TRANEXAMIC ACID 1,000 MG/10 ML VIAL IV ONE (11:46)
[2022-08-06] MEDS ORDERED: NS 0.9% VIAL 10 ML ONE (11:54)
[2022-08-06] MEDS ORDERED: EPHEDRINE SULF 50 MG/ML VIAL ONE (12:02)
--- NOTE | 2022-08-06 12:30 | P.BOP ---
Preoperative diagnosis: right hip IT fracture Postoperative diagnosis: same Primary procedure: KARI right hip Estimated blood loss: 50 ccs Anesthesia: block/sed Complications: None Transferred to: Recovery Room Condition: Good
--- NOTE | 2022-08-06 12:45 | CON ---
Date of Consultation: 08/06/2022 Reason For Consultation: Cardiac clearance for right hip fracture surgery by Dr. Landis. History Of Present Illness: Ms. Schmitt is 62. Has had a history of seizure disorder and CVA. She f ollows up with Dr. Thomas. Has had a history of COPD. Did not have any syncopal episode, but she fel l and broke her hip, surgery is planned for today. No cardiac symptoms reported. Denies PND, orthop esther, pedal edema, palpitations, or syncope. Denied any chest pain. Denied any unexplained nausea, v omiting, or diaphoresis. EKG is normal. Chest x-ray is positive for COPD. Troponin is negative. C reatinine is normal. Past Medical History: As stated above. Allergies: NONE. Review of Systems: Negative. Social History: Negative. Family History: Negative. Medications: At home include Dilantin. Physical Examination: Vital Signs: Stable, afebrile. HEENT: Negative without lymphadenopathy, JVD, thyromegaly, or bruit. Chest: Revealed expiratory wheezing. Cardiac: Revealed a regular rhythm and rate, aortic sclerosis murmurs. No gallops or rubs. Abdomen: Benign. Extremities: Revealed no clubbing, cyanosis, or edema. Diagnostic Data: All within normal limit. Impression And Plan: Status post fall, status post right hip fracture. Normal EKG. No physical fin dings of coronary artery disease or congestive heart failure. No cardiac symptoms. I think she is a t low risk for perioperative mortality. Her other problems include chronic obstructive pulmonary dis ease, seizure disorder and history of cerebrovascular accident, all of those are stable. Ms. Schmitt is a DNR. I think she will do well with surgery. We will continue to follow her. KEEGAN/MODL Voice ID: [id number] Report ID: [id number]
--- NOTE | 2022-08-06 12:57 | RAD REPORT ---
EXAM DESCRIPTION: - Hip in OR Right 2 View - 08/06/2022 12:51 pm FINDINGS: Six portable C-arm views were submitted from a fluoroscopic assisted placement of right fe mur fracture fixation hardware. No suspicious or unexpected finding. Fluoro time was 1.0 minutes. Cumulative dose was 9.26 mGy.
--- NOTE | 2022-08-06 13:33 | EKG ---
Test Date: 2022-08-05 Test Time: 23:10:13 [employer] Assistant Teacher: TAD MEASUREMENT RESULTS: Intervals: Rate: 77 KS: 154 QRSD: 70 QT: 364 QTc: 411 [place]: P: 78 KS: 154 QRS: 82 T: 78 INTERPRETIVE STATEMENTS: Normal sinus rhythm Low voltage QRS Septal infarct, age undetermined Abnormal ECG No previous ECG available for comparison Electronically Signed On 08-06-22 13:32:34 CDT by Ephraim Diaz
[2022-08-06] MEDS: lamoTRIgine 150 MG TAB PO SCH ×2 (13:49→20:17)
[2022-08-06] MEDS: PHENYTOIN ER 100 MG CAP PO SCH ×2 (14:45→20:16)
--- NOTE | 2022-08-06 19:18 | P.PN ---
Subjective Date of Service: 08/06/22 Chief Complaint: Right hip fracture No acute events since admission. History is limited by baseline mental status. She reports significant right hip pain. Review of Systems is unable to be obtained Musculoskeletal: Leg Pain (right hip) Physical Examination - Vital Signs Temperature: 97.2 F Blood Pressure: 116/55 Pulse: 61 Respirations: 16 Pulse Ox (%): 100 - Physical Exam General: Alert, In no apparent distress, Oriented x1 (self), Confused HEENT: Atraumatic, PERRLA, Mucous membr. moist/pink, EOMI, Sclerae nonicteric Neck: Supple, JVD not distended Respiratory: Clear to auscultation bilaterally, Normal air movement Cardiovascular: No edema, Regular rate/rhythm, Normal S1 S2, No gallops, No rubs, No murmurs Capillary refill: <2 Seconds Gastrointestinal: Normal bowel sounds, Soft and benign, Non-distended, No tenderness, No rebound, No guarding Musculoskeletal: No clubbing Integumentary: No rashes Neurological: Other (baseline mental disability from prior CVA) - Studies Laboratory Data (last 24 hrs) 08/05/22 21:00: PT 12.1, INR 1.10 08/05/22 21:00: Sodium 139, Potassium 4.1, BUN 11, Creatinine 0.82, Glucose 139 H, Magnesium 1.7 L, Total Bilirubin 0.4, AST 21, ALT 20, Alkaline Phosphatase 98 Assessment And Plan - Plan # Traumatic Ground-Level Fall complicated by Right Femur Comminuted Intertrochanteric Fracture - Consulted Orthopedic Surgery and spoke with Dr. Avery - recommendations appreciated - Plan for surgery today if able to obtain cardiac clearance - Consulted Cardiology and spoke with Dr. Schneider - recommendations appreciated - NPO pending surgery - Consult PT post-op, will likely require placement - Per Dr. Landis, start VTE prophylaxis tomorrow - Pain control # Suspect Chronic Hypoxic Respiratory Failure due to Chronic Obstructive Pulmonary Disease - Consulted Pulmonary Medicine - recommendations appreciated - PRN albuterol - Supplemental oxygen to maintain SpO2 > 92 % - Home oxygen evaluation - Will require peak flow as an outpatient to assess GOLD stage # Seizure Disorder # History of Hemorrhagic Cerebrovascular Accident with Residual Right-Sided Deficits and Mental Disability (2011) # Encephalomalacia - Continue home phenytoin, lamotrigine # Tobacco Use Disorder - Unable to adequately provide tobacco cessation counseling given mental status - however, this was discussed with her son Mr. Luis Bray M.D.
--- NOTE | 2022-08-06 23:43 | OP ---
Date of Procedure: 08/06/2022 Surgeon: Isac Landis MD Preoperative Diagnosis: Right displaced intertrochanteric fracture of the hip. Postoperative Diagnosis: Right displaced intertrochanteric fracture of the hip. Procedure: Right hip closed reduction, intramedullary robert fixation using the [employer] AFFIXUS System. Estimated Blood Loss: 50 cc. There were no complications. There were no pathology specimens sent. Indications: Ms. Schmitt is a patient with multiple medical problems, who unfortunately fell injuring her right lower extremity. She was seen and examined in the Emergency Department where she was rule d out for other injuries; however, she does have a displaced right intertrochanteric fracture. Risks , benefits, and alternatives of different methods of treating this were discussed with both the patie nt as well as her family. They state they understand things as presented and at this time, opt for f ixation and all their questions have been answered. Description Of Procedure: The patient obtained a block in the holding area. Unfortunately, she does have fairly poor pulmonary status and intubation is desired to be avoided by Anesthesia and we are a ble to avoid that throughout the procedure, only having sedation and the block. She was taken to the operating room and placed in supine position. She was placed on the fracture table and placed in a position of reduction. C-arm was brought in and obtained good AP and lateral views and the fracture appears to be well reduced. After this, the right hip was then prepped and draped in usual sterile f ashion. An incision was made superior to the greater trochanter for placement of a finger. The grea ter trochanter was palpated and the starting awl was then used to establish appropriate starting poin t. After this was done, the guide robert was then placed down the shaft of the femur without difficulty . The quiller hand was then used to establish an opening portal and the size 9 x 130 robert was then jessy tania. The guide robert was removed. Cephalomedullary screws are placed in standard fashion, followed by a distal interlocking screw. These were observed under biplanar radiography and appeared to maintai n reduction and to be in good position. After this, the incisions were irrigated and the fascia was closed in a watertight fashion using heavy Vicryl sutures, followed by closure of skin with Vicryl fo llowed by alize. The patient was then placed in Aquacel dressing and taken to recovery room. /SALOME Voice ID: [id number] Report ID: [id number]
[2022-08-07] MEDS: D5.45NS W/KCL 20MEQ 1,000 ML IV SCH ×3 (01:33→11:52)
[2022-08-07] MEDS: MORPHINE 2 MG/ML SYR IV PRN ×4 (01:59→21:02)
[2022-08-07 06:13] LABS: Absolute Lymphocytes (CBC) 1.7 K/uL (0.7-4.9); Hematocrit 31.9 % (36.0-45.0); Lymphocytes % 21.2 % (15.3-44.8); MCV 95.8 fL (80-100); MPV 7.2 fL (7.6-11.3); RBC Red Blood Cell Count 3.33 M/uL (3.86-4.86)
[2022-08-07 06:31] LABS: Albumin 2.7 g/dL (3.4-5.0); Bilirubin Total 0.3 mg/dL (0.2-1.0); Potassium 4.2 mmol/L (3.5-5.1); Protein, Total 5.7 g/dL (6.4-8.2)
--- NOTE | 2022-08-07 06:43 | CON ---
Date of Consultation: 08/06/2022 History Of Present Illness: This is my first time seeing this patient to my knowledge. She is a 62- year-old female, who unfortunately has a diagnosis of previous CVA as well as all other medical probl ems, which can be reviewed in the chart. She unfortunately fell injuring her right lower extremity. She was ambulatory at home without assistive device, although I believe this is what has been recomm ended her by reviewing the notes. She had immediate pain and problems. She was brought to the emerg ency department where she was ruled out for other injuries, but she does have a displaced intertrocha nteric fracture on the right. Physical Examination: All of her long bones are palpated without pain or crepitation. She does have some complaints of her right upper extremity, which unfortunately does have a degree of deficits from previous CVA; however , there was no crepitation or significant pain with palpation. She does have pain with palpation and manipulation of the right hip. Laboratory Data: Review of x-rays revealed a displaced intertrochanteric fracture on the right. Assessment And Plan: She has her son in the room with her. He does have power of workers compensation attorney and risks , benefits, and alternatives of different methods of treating this have been discussed with her as we ll as her son. They state they understand things as presented. Most likely, we will proceed today w ith closed reduction, intramedullary robert fixation of her right intertrochanteric hip fracture. All o f her questions as well as her son are answered. /SALOME Voice ID: [id number] Report ID: [id number]
--- NOTE | 2022-08-07 08:52 | PN ---
Subjective: Ms. Schmitt underwent a right hip closed reduction yesterday by Dr. Landis. She was c leared for surgery by us. Postoperatively, she is doing well. No complaint. No hemodynamic comprom ise. Sinus rhythm. Objective: Examination shows clear chest. Extremities showed no edema. Impression And Plan: 1.Status post right hip closed reduction. 2.Chronic obstructive pulmonary disease. 3.Seizure. No postoperative complication. We will sign off her case. Continue present regimen. KEEGAN/SALOME Voice ID: [id number] Report ID: [id number]
[2022-08-07] MEDS: PHENYTOIN ER 100 MG CAP PO SCH ×2 (09:03→20:39)
[2022-08-07] MEDS: NICOTINE 21 MG/PAT TD SCH (09:03)
[2022-08-07] MEDS: lamoTRIgine 150 MG TAB PO SCH ×2 (09:03→20:38)
[2022-08-07] MEDS: APIXABAN 2.5 MG TABLET PO SCH ×2 (11:52→20:38)
--- NOTE | 2022-08-07 12:29 | P.CNS ---
Date of Consult: 08/07/22 Reason for Consult: Shortness of breath Chief Complaint: Shortness of breath possible underlying COPD History of Present Illness: Patient is 61 years of age with a history of stroke right-sided weakness and to the emergency room was found on the floor heavy smoker had a hip repair yesterday has been having some shortness of breath is also hypoxic at the bedside no prior history of COPD Allergies No Known Allergies Allergy (Verified 08/05/22 22:05) Home Medications: Lamotrigine [Lamictal] 150 mg PO BID 08/06/22 PHENYTOIN ER Cap [Dilantin ER Cap*] 100 mg PO DAILY 08/06/22 PHENYTOIN ER Cap [Dilantin ER Cap*] 200 mg PO BEDTIME 08/06/22 - Past Medical/Surgical History Diabetic: No -: Hemorrhagic stroke 2011 right-sided weakness -: Encephalomalacia/mental disability from previous stroke -: Seizures -: Aneurysmal clipping 2011 Psychosocial/ Personal History: Patient lives at home with her son who is her primary caregiver - Social History Smoking Status: Current every day smoker Alcohol use: No CD- Drugs: No Caffeine use: No Place of Residence: Home Review of Systems 10-point ROS is otherwise unremarkable General: Weakness Respiratory: Shortness of Breath Physical Examination Temp Pulse Resp BP Pulse Ox 97.8 F 72 16 128/60 93 08/07/22 12:00 08/07/22 12:00 08/07/22 12:00 08/07/22 12:00 08/07/22 12:00 General: Alert, Unresponsive Respiratory: Clear to auscultation bilaterally, Diminished Cardiovascular: No edema, Normal S1 S2 Gastrointestinal: Normal bowel sounds, Soft and benign - Problems (1) Shortness of breath Current Visit: Yes Status: Acute Plan: Patient is a heavy smoker possible underlying COPD
[2022-08-07] MEDS ORDERED: ALBUTEROL 2.5 MG/3 ML NEB SOL NEB PRN (15:00)
--- NOTE | 2022-08-07 20:16 | P.PN ---
Subjective Date of Service: 08/07/22 Chief Complaint: Right hip fracture Post-Op Day #1 from right hip closed reduction, intramedullary roberto carlos fixation. History is limited by baseline mental status. She reports mild right hip pain. Review of Systems is unable to be obtained Physical Examination - Vital Signs Temperature: 97.8 F Blood Pressure: 148/76 Pulse: 75 Respirations: 16 Pulse Ox (%): 92 Assessment And Plan - Plan - Physical Exam General: Alert, In no apparent distress, Oriented x1 (self), Confused HEENT: Atraumatic, PERRLA, Mucous membr. moist/pink, EOMI, Sclerae nonicteric Neck: Supple, JVD not distended Respiratory: Clear to auscultation bilaterally, Normal air movement Cardiovascular: No edema, Regular rate/rhythm, Normal S1 S2, No gallops, No rubs, No murmurs Capillary refill: <2 Seconds Gastrointestinal: Normal bowel sounds, Soft and benign, Non-distended, No tende rness, No rebound, No guarding Musculoskeletal: No clubbing Integumentary: No rashes Neurological: Other (baseline mental disability from prior CVA) # Traumatic Ground-Level Fall complicated by Right Femur Comminuted Intertrochanteric Fracture s/p Right Hip Closed Reduction, Intramedullary Roberto Carlos Fixation (08/06/2022) - Consulted Orthopedic Surgery and spoke with Dr. Landis - recommendations appreciated - S/P surgery on 08/06/2022 - Consulted Cardiology and spoke with Dr. Schneider - recommendations appreciated - Consult PT will likely require placement - Per Dr. 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 Smith Alfredo Bray M.D.
[2022-08-08] MEDS: D5.45NS W/KCL 20MEQ 1,000 ML IV SCH ×3 (00:06→20:32)
[2022-08-08] MEDS: MORPHINE 2 MG/ML SYR IV PRN ×5 (01:31→18:00)
--- NOTE | 2022-08-08 08:43 | PN ---
Date of Progress Note: 08/07/2022 The patient is seen today. She was resting comfortably in bed. She does not have any complaints whe n asked. Her heels are nontender. Her dressing is clean, dry, and intact. Review of her hemoglobin revealed that she is maintaining this well. I spoke with the hospitalist regarding possible dischar ge plans, recommend anticoagulation for 3 weeks followed by aspirin for 3 weeks only if tolerated by the patient and recommended by the hospitalist, also touchdown weightbearing with dressing to be terell alberto only when needed and removal of alize in 2 weeks. We can see her back in our office in 2 weeks for staple removal or at any other time. We would definitely like to see her in our office at 6 wee ks as well to ensure that she has healing and will be able to advance her weightbearing status. /SALOME Voice ID: [id number] Report ID: [id number]
[2022-08-08] MEDS: NICOTINE 21 MG/PAT TD SCH (09:55)
[2022-08-08] MEDS: PHENYTOIN ER 100 MG CAP PO SCH ×2 (09:56→20:31)
[2022-08-08] MEDS: APIXABAN 2.5 MG TABLET PO SCH ×2 (09:56→20:31)
[2022-08-08] MEDS: lamoTRIgine 150 MG TAB PO SCH ×2 (09:56→20:32)
[2022-08-08] MEDS ORDERED: MORPHINE 2 MG/ML SYR IV ONE (12:26)
--- NOTE | 2022-08-08 20:25 | P.PN ---
Subjective Date of Service: 08/08/22 Chief Complaint: Right hip fracture Post-Op Day #2 from right hip closed reduction, intramedullary roberto carlos fixation. History is limited by baseline mental status. She reports mild right hip pain. Otherwise, she is doing well. She is awaiting placement into SNF. Review of Systems is unable to be obtained Physical Examination - Vital Signs Temperature: 97.5 F Blood Pressure: 149/71 Pulse: 69 Respirations: 16 Pulse Ox (%): 92 Assessment And Plan - Plan - Physical Exam General: Alert, In no apparent distress, Oriented x1 (self), Confused HEENT: Atraumatic, PERRLA, Mucous membr. moist/pink, EOMI, Sclerae nonicteric Neck: Supple, JVD not distended Respiratory: Clear to auscultation bilaterally, Normal air movement Cardiovascular: No edema, Regular rate/rhythm, Normal S1 S2, No gallops, No rubs, No murmurs Capillary refill: <2 Seconds Gastrointestinal: Normal bowel sounds, Soft and benign, Non-distended, No tenderness, No rebound, No guarding Musculoskeletal: No clubbing Integumentary: No rashes Neurological: Other (baseline mental disability from prior CVA) # Traumatic Ground-Level Fall complicated by Right Femur Comminuted Intertrochanteric Fracture s/p Right Hip Closed Reduction, Intramedullary Roberto Carlos Fixation (08/06/2022) - Consulted Orthopedic Surgery and spoke with Dr. Landis - recommendations appreciated - S/P surgery on 08/06/2022 - Consulted Cardiology and spoke with Dr. Schneider - recommendations appreciated - Consult PT will likely require placement - Per Dr. 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 Smith Medically cleared. Transfer to SNF once accepted. Alfredo Bray M.D.
[2022-08-08] MEDS: MELATONIN 5 MG TABLET PO PRN (21:44)
[2022-08-09] MEDS: MORPHINE 2 MG/ML SYR IV PRN ×6 (00:02→22:26)
[2022-08-09] MEDS ORDERED: MORPHINE 2 MG/ML SYR IV ONE ×2 (02:08→11:01)
[2022-08-09] MEDS: lamoTRIgine 150 MG TAB PO SCH ×2 (08:51→20:56)
[2022-08-09] MEDS: APIXABAN 2.5 MG TABLET PO SCH ×2 (08:51→20:56)
[2022-08-09] MEDS: PHENYTOIN ER 100 MG CAP PO SCH ×2 (08:51→20:56)
[2022-08-09] MEDS: NICOTINE 21 MG/PAT TD SCH (08:52)
[2022-08-09] MEDS ORDERED: MORPHINE 2 MG/ML SYR ONE (11:07)
[2022-08-09] MEDS: D5.45NS W/KCL 20MEQ 1,000 ML IV SCH ×2 (16:07→18:40)
--- NOTE | 2022-08-09 17:38 | P.PN ---
Subjective Date of Service: 08/09/22 Chief Complaint: Right hip fracture Post-Op Day #3 from right hip closed reduction, intramedullary roberto carlos fixation. History is limited by baseline mental status. She has been experiencing intermittent agitation. She is awaiting placement into SNF. Review of Systems is unable to be obtained Physical Examination - Vital Signs Temperature: 97.0 F Blood Pressure: 135/56 Pulse: 70 Respirations: 14 Pulse Ox (%): 97 Assessment And Plan - Plan - Physical Exam General: Alert, In no apparent distress, Oriented x1 (self), Confused HEENT: Atraumatic, PERRLA, Mucous membr. moist/pink, EOMI, Sclerae nonicteric Neck: Supple, JVD not distended Respiratory: Clear to auscultation bilaterally, Normal air movement Cardiovascular: No edema, Regular rate/rhythm, Normal S1 S2, No gallops, No rubs, No murmurs Capillary refill: <2 Seconds Gastrointestinal: Normal bowel sounds, Soft and benign, Non-distended, No tenderness, No rebound, No guarding Musculoskeletal: No clubbing Integumentary: No rashes Neurological: Other (baseline mental disability from prior CVA) # Traumatic Ground-Level Fall complicated by Right Femur Comminuted Intertrochanteric Fracture s/p Right Hip Closed Reduction, Intramedullary Roberto Carlos Fixation (08/06/2022) - Consulted Orthopedic Surgery and spoke with Dr. Landis - recommendations appreciated - S/P surgery on 08/06/2022 - Consulted Cardiology and spoke with Dr. Schneider - recommendations appreciated - Per Dr. 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 Smith Medically cleared. Transfer to SNF once accepted. Alfredo Bray M.D. Physician Review: Patient Assessed, Agree with Above Assessment and Plan
[2022-08-09] MEDS: MELATONIN 5 MG TABLET PO PRN (20:56)
[2022-08-10] MEDS: D5.45NS W/KCL 20MEQ 1,000 ML IV SCH (04:40)
[2022-08-10] MEDS: MORPHINE 2 MG/ML SYR IV PRN ×5 (04:45→21:12)
[2022-08-10] MEDS: lamoTRIgine 150 MG TAB PO SCH ×2 (08:44→21:12)
[2022-08-10] MEDS: APIXABAN 2.5 MG TABLET PO SCH ×2 (08:44→21:12)
[2022-08-10] MEDS: PHENYTOIN ER 100 MG CAP PO SCH ×2 (08:44→21:11)
[2022-08-10] MEDS: NICOTINE 21 MG/PAT TD SCH (08:45)
[2022-08-10] MEDS: MELATONIN 5 MG TABLET PO PRN (21:12)
[2022-08-11] MEDS: MORPHINE 2 MG/ML SYR IV PRN ×5 (01:50→19:52)
[2022-08-11] MEDS: NICOTINE 21 MG/PAT TD SCH (09:01)
[2022-08-11] MEDS: PHENYTOIN ER 100 MG CAP PO SCH ×2 (09:02→19:53)
[2022-08-11] MEDS: APIXABAN 2.5 MG TABLET PO SCH ×2 (09:03→19:53)
[2022-08-11] MEDS: lamoTRIgine 150 MG TAB PO SCH ×2 (09:03→19:52)
--- NOTE | 2022-08-11 11:13 | P.PN ---
Subjective Date of Service: 08/10/22 Chief Complaint: Right hip fracture No new complaints patient is still has some weakness on the right side has some discomfort Review of Systems Unremarkable Physical Examination - Vital Signs Temperature: 97.5 F Blood Pressure: 129/56 Pulse: 69 Respirations: 12 Pulse Ox (%): 96 - Physical Exam General: Alert, In no apparent distress, Oriented x3 Respiratory: Clear to auscultation bilaterally Cardiovascular: No edema Neurological: Other (Patient has had weakness and stroke on the right side) Assessment And Plan - Current Problems (Diagnosis) (1) Hip fracture Current Visit: Yes Status: Acute Plan: S/p hip replacement feeling weak plan for transfer to an LTAC or SNF facility for rehab stroke on the right side chemistries reviewed patient's vital signs are all stable Qualifiers: Encounter type: subsequent encounter Fracture type: closed Physician Review: Patient Assessed, Agree with Above Assessment and Plan
--- NOTE | 2022-08-11 11:19 | P.PN ---
Subjective Date of Service: 08/11/22 Chief Complaint: Right hip fracture No new complaints from yesterday no change no discomfort Review of Systems General: Weakness Physical Examination - Vital Signs Temperature: 97.5 F Blood Pressure: 129/56 Pulse: 69 Respirations: 12 Pulse Ox (%): 96 - Physical Exam General: Alert, In no apparent distress, Oriented x3 Assessment And Plan - Current Problems (Diagnosis) (1) Hip fracture Current Visit: Yes Status: Acute Plan: No new changes awaiting transfer to an LTAC unit labs vital signs all stable o xygenation satisfactory Qualifiers: Encounter type: subsequent encounter Fracture type: closed Physician Review: Patient Assessed, Agree with Above Assessment and Plan
[2022-08-12] MEDS: MORPHINE 2 MG/ML SYR IV PRN ×6 (00:13→21:32)
[2022-08-12] MEDS: APIXABAN 2.5 MG TABLET PO SCH ×2 (09:06→21:33)
[2022-08-12] MEDS: PHENYTOIN ER 100 MG CAP PO SCH ×2 (09:06→21:32)
[2022-08-12] MEDS: lamoTRIgine 150 MG TAB PO SCH ×2 (09:07→21:33)
[2022-08-12] MEDS: NICOTINE 21 MG/PAT TD SCH (09:08)
--- NOTE | 2022-08-12 16:09 | P.PN ---
Date of Service: 08/12/22 Subjective Patient is clinically feeling better. Awaiting for placement Physical Examination - Vital Signs Reviewed - Physical Exam General: Alert, In no apparent distress, Oriented x1, Cooperative, Confused Respiratory: Diminished Cardiovascular: No edema, Regular rate/rhythm, Normal S1 S2 Gastrointestinal: Normal bowel sounds, No tenderness Musculoskeletal: No tenderness Neurological: No focal deficits Assessment and Plan -Assessment Assessment: Right intertrochanteric comminuted/displaced femur fracture Acute on chronic hypoxic respiratory failure likely secondary to suspected underlying COPD Seizure disorder Right-sided weakness/mental disability secondary to encephalomalacia/previous hemorrhagic CVA 2012 Tobacco abuse - Plan Plan: Right intertrochanteric comminuted/displaced femur fracture: Continue with physical therapy; awaiting for inpatient rehab placement Acute on chronic hypoxic respiratory failure likely secondary to suspected underlying COPD: Continue with nebs, steroids, and antibiotics Seizure disorder: Dilantin level ordered, continue medications once verified. Right-sided weakness/mental disability secondary to encephalomalacia/previous hemorrhagic CVA 2012: Continue with supportive care. Continue with antiplatelet therapy and statin therapy Tobacco abuse: Son reports he smokes about 3 packs/day, will provide with NicoDerm patch. Counseled on need for cessation.
[2022-08-12] MEDS: MELATONIN 5 MG TABLET PO PRN (21:32)
[2022-08-13] MEDS: MORPHINE 2 MG/ML SYR IV PRN ×6 (02:26→22:27)
[2022-08-13 06:24] LABS: Absolute Lymphocytes (CBC) 2.5 K/uL (0.7-4.9); Hematocrit 35.1 % (36.0-45.0); Lymphocytes % 35.1 % (15.3-44.8); MCV 94.8 fL (80-100); MPV 6.8 fL (7.6-11.3); RBC Red Blood Cell Count 3.71 M/uL (3.86-4.86)
[2022-08-13] MEDS: lamoTRIgine 150 MG TAB PO SCH ×2 (09:00→21:12)
[2022-08-13] MEDS: NICOTINE 21 MG/PAT TD SCH (09:00)
[2022-08-13] MEDS: PHENYTOIN ER 100 MG CAP PO SCH ×2 (09:00→21:12)
[2022-08-13] MEDS: APIXABAN 2.5 MG TABLET PO SCH ×2 (09:00→21:12)
[2022-08-14] MEDS: MORPHINE 2 MG/ML SYR IV PRN ×3 (02:38→11:27)
[2022-08-14] MEDS: PHENYTOIN ER 100 MG CAP PO SCH (08:00)
[2022-08-14] MEDS: lamoTRIgine 150 MG TAB PO SCH (08:00)
[2022-08-14] MEDS: NICOTINE 21 MG/PAT TD SCH (08:01)
[2022-08-14] MEDS: APIXABAN 2.5 MG TABLET PO SCH (08:01)
[2022-08-14 09:24] VITALS: O2SAT 95
[2022-08-14 09:58] VITALS: BP 125/63; TEMP 97.7
== END 2022-08-14 11:45 | DRG 480 ==
LOC: ER 18:46 → ERHOLD 21:56 → 4TH 23:04
PROVIDERS: ADMIT Internal Medicine; ATTEND Hospitalist
PROC: 0QS636Z Reposition Right Upper Femur with Intramedullary Internal Fixation Device, Percutaneous Approach (ICD-10-PCS; principal; 2022-08-06 12:00)
DX: S72.141A Displaced intertrochanteric fracture of right femur, initial encounter for closed fracture (principal); J96.21 Acute and chronic respiratory failure with hypoxia; M62.82 Rhabdomyolysis; I69.351 Hemiplegia and hemiparesis following cerebral infarction affecting right dominant side; J44.9 Chronic obstructive pulmonary disease, unspecified; G93.89 Other specified disorders of brain; G40.909 Epilepsy, unspecified, not intractable, without status epilepticus; F17.210 Nicotine dependence, cigarettes, uncomplicated; Z66 Do not resuscitate; Z88.8 Allergy status to other drugs, medicaments and biological substances; Z91.199 Patient's noncompliance with other medical treatment and regimen due to unspecified reason; Z20.822 Contact with and (suspected) exposure to COVID-19; W18.30XA Fall on same level, unspecified, initial encounter; Y92.099 Unspecified place in other non-institutional residence as the place of occurrence of the external cause
CPT/HCPCS: 36415; 51702; 70450; 71045; 71250; 72125; 72170; 80048; 80053; 80061; 80076; 80185; 80307; 80320; 81015; 82550; 82553; 83036; 83735; 83880; 84439; 84443; 84484; 85025; 85610; 86850; 86900; 86901; 87811; 93005; 97110; 97116; 97161; 97530; 99285; A4216; J0171; J0690; J1100; J1170; J2001; J2250; J2270; J2405; J2704; J2930; J3010; J3475; J7030; J7120; J7614